=== PATIENT | female | born 1970 | race Caucasian/White ===

== ENCOUNTER 2018-08-08 21:14 | Emergency (ER) | payer BC, OTHER ==
[~2018-08-08] VITALS: Ht 172.7 cm; Wt 127.0 kg
[~2018-08-08 21:14] MED LIST: ACHD5005 PO; ALPR.25T PO; CYCL10TA9 PO; PHEN37.555 PO; PRD20T PO; TRAM50TA2 PO
--- NOTE | 2018-08-08 21:33 | ED Lower Extremity ---
General Stated Complaint: LEG SWELLING Source: patient History of Present Illness Date Seen by Provider: Aug 08, 2018 Time Seen by Provider: 21:19 Initial Comments PT ARRIVES VIA POV FROM HOME--WALKS INTO ER WITHOUT DIFFICULTY PT C/O PAIN TO MEDIAL ASPECT OF LEFT LEG SINCE WEDNESDAY--STARTED IN MEDIAL THIGH AND HAS MOVED DOWN TO MEDIAL CALF AREA IS NOW STARTING TO TURN RED NOTICED SWELLING OF ENTIRE LEFT LEG TODAY NO FEVER NO CHEST PAIN NO SHORTNESS OF BREATH NO PALPITATIONS NO DIZZINESS OR SYNCOPE NO PARESTHESIAS OR MOTOR DEFICITS NO INJURY NO HISTORY OF SIMILAR PT HAS VARICOSE VEINS IN HER LEGS, BUT HAVE NEVER CAUSED HER PROBLEMS NO PROLONGED SITTING OR TRAVEL, ETC. PT HAD LEFT SHOULDER SURGERY 06/16/18 HAS BEEN TAKING TYLENOL AND IBUPROFEN FOR THAT, AND TOOK 3 IBUPROFEN AT 0900 THIS AM, IS HER NORMAL ROUTINE. ALSO STATES SHE TAKES HYDROCODONE FOR HER SHOULDER PAIN WELL, BUT HAS NOT TAKEN ANY TODAY PT WORKS AT [employer] AND NURSES THERE TOLD HER SHE NEEDED TO COME HERE. PCP: [facility] Allergies and Home Medications Allergies Coded Allergies: Penicillins (Verified Allergy, 12/18/12) Soap (Verified Allergy, 12/18/12) povidone-iodine (Verified Allergy, 12/18/12) Home Medications Alprazolam 0.25 Mg Tablet, 1 TAB PO Q8HR PRN, (Reported) Cyclobenzaprine Hcl 10 Mg Tablet, 1 EACH PO Q8HR PRN PRN for SPASMS Prescribed by: JASMINE WATSON on 12/18/12 1538 Cyclobenzaprine Hcl 10 Mg Tablet, 1 EACH PO Q8HR, (Reported) Hydrocodone Bit/Acetaminophen 1 Each Tablet, 1-2 EACH PO Q4H PRN for PAIN Prescribed by: JASMINE WATSON on 12/18/12 1551 Phentermine Hcl 37.5 Mg Capsule, 37.5 MG PO DAILY, (Reported) Rivaroxaban 1 Each Tab.ds.pk, 1 EACH PO UD 15mg by mouth twice daily x 21 days then 20mg by mouth daily Prescribed by: TENNILLE MACHUCA on 08/08/18 2211 Patient Home Medication List Home Medication List Reviewed: Yes Review of Systems Constitutional: no symptoms reported Respiratory: no symptoms reported Cardiovascular: no symptoms reported Gastrointestinal: no symptoms reported Genitourinary: no symptoms reported Musculoskeletal: see HPI Skin: see HPI Psychiatric/Neurological: No Symptoms Reported Past Npomsce-Gjztqo-Kghibg Hx Patient Social History Recent Foreign Travel: No Contact w/Someone Who Travel: No Past Medical History Back Injury Family Medical History No Pertinent Family Hx Physical Exam Vital Signs Vital Signs - First Documented 08/08/18 21:19 Temp 98.4 Pulse 106 Resp 20 B/P (MAP) 184/103 (130) Pulse Ox 96 O2 Delivery Room Air Capillary Refill : Height, Weight, BMI Height: '" Weight: 220lbs. oz. 99.172626is; BMI Method:Stated General Appearance: WD/WN, no apparent distress, obese Cardiovascular: normal peripheral pulses, regular rate, rhythm, no murmur Respiratory: normal breath sounds, no respiratory distress, no accessory muscle use Hips: bilateral hip normal inspection Legs: right leg normal inspection; left leg other (MILD SWELLING TO ENTIRE LEFT LEG, WITH PATCHY ERYTHEMA, WARMTH AND TENDERNESS TO MEDIAL ASPECT OF LEFT LEG FROM MID THIGH TO MID CALF. SMALLER AREA TO LEFT LATERAL CALF AREA. WITH FIRM INDURATION/SUB Q FIRMNESS/MASS/CORDING NOTED ALONG THESE AREAS. MO TOR/SENSORY/VASCULAR INTACT. MULTIPLE SUPERFICAL VARICOSITES WELL SOME LARGER MORE SUB Q VARICOSITIES NOTED. 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, no motor/sensory deficits, alert, normal mood/affect, oriented x 3 Skin: normal color, warm/dry, other ( ABOVE) Progress/Results/Core Measures Results/Orders Lab Results Laboratory Tests Test 08/08/18 21:31 Range/Units White Blood Count 6.8 4.3-11.0 10^3/uL Red Blood Count 4.15 L 4.35-5.85 10^6/uL Hemoglobin 12.1 11.5-16.0 G/DL Hematocrit 36 35-52 % Mean Corpuscular Volume 87 80-99 FL Mean Corpuscular Hemoglobin 29 25-34 PG Mean Corpuscular Hemoglobin Concent 34 32-36 G/DL Red Cell Distribution Width 13.7 10.0-14.5 % Platelet Count 253 130-400 10^3/uL Mean Platelet Volume 9.6 7.4-10.4 FL Neutrophils (%) (Auto) 66 42-75 % Lymphocytes (%) (Auto) 26 12-44 % Monocytes (%) (Auto) 5 0-12 % Eosinophils (%) (Auto) 2 0-10 % Basophils (%) (Auto) 0 0-10 % Neutrophils # (Auto) 4.5 1.8-7.8 X 10^3 Lymphocytes # (Auto) 1.8 1.0-4.0 X 10^3 Monocytes # (Auto) 0.4 0.0-1.0 X 10^3 Eosinophils # (Auto) 0.1 0.0-0.3 10^3/uL Basophils # (Auto) 0.0 0.0-0.1 10^3/uL Erythrocyte Sedimentation Rate 36 H 0-20 MM/HR Prothrombin Time 13.7 12.2-14.7 SEC INR Comment 1.0 0.8-1.4 Activated Partial Thromboplast Time 25 24-35 SEC Sodium Level 139 135-145 MMOL/L Potassium Level 3.7 3.6-5.0 MMOL/L Chloride Level 106 98-107 MMOL/L Carbon Dioxide Level 20 L 21-32 MMOL/L Anion Gap 13 5-14 MMOL/L Blood Urea Nitrogen 17 7-18 MG/DL Creatinine 0.91 0.60-1.30 MG/DL Estimat Glomerular Filtration Rate > 60 BUN/Creatinine Ratio 19 Glucose Level 107 H 70-105 MG/DL Calcium Level 9.2 8.5-10.1 MG/DL Corrected Calcium 9.0 8.5-10.1 MG/DL Magnesium Level 2.1 1.8-2.4 MG/DL Total Bilirubin 0.3 0.1-1.0 MG/DL Aspartate Amino Transf (AST/SGOT) 60 H 5-34 U/L Alanine Aminotransferase (ALT/SGPT) 76 H 0-55 U/L Alkaline Phosphatase 108 40-136 U/L C-Reactive Protein High Sensitivity 1.92 H 0.00-0.50 MG/DL B-Type Natriuretic Peptide < 10.0 <100.0 PG/ML Total Protein 7.6 6.4-8.2 GM/DL Albumin 4.2 3.2-4.5 GM/DL Serum Test, Qualitative NEGATIVE NEGATIVE My Orders Orders - TENNILLE MACHUCA DO Ed Iv/Invasive Line Start (08/08/18 21:21) Us Venous Lower Ext Lt (08/08/18 21:21) BNP (08/08/18 21:21) Cbc With Automated Diff (08/08/18 21:21) Comprehensive Metabolic Panel (08/08/18 21:21) Hs C Reactive Protein (08/08/18 21:21) Erythrocyte Sedimentation Rate (08/08/18 21:21) Magnesium (08/08/18 21:21) Protime With Inr (08/08/18 21:21) Partial Thromboplastin Time (08/08/18 21:21) Hcg,Qualitative Serum (08/08/18 21:24) Methylprednisolone Sod Succ (Solu-Medrol (08/08/18 22:00) Rivaroxaban Tablet (Xarelto Tablet) (08/08/18 22:00) Medications Given in ED Current Medications Medications Dose Ordered Sig/Reddy Route Start Time Stop Time Status Last Admin Dose Admin Methylprednisolone Sodium Succinate 125 mg ONCE ONCE IVP 08/08/18 22:00 08/08/18 22:03 DC 08/08/18 22:16 125 MG Rivaroxaban 15 mg ONCE ONCE PO 08/08/18 22:00 08/08/18 22:03 DC 08/08/18 22:11 15 MG Vital Signs/I&O 08/08/18 21:19 Temp 98.4 Pulse 106 Resp 20 B/P (MAP) 184/103 (130) Pulse Ox 96 O2 Delivery Room Air Diagnostic Imaging Comments ULTRASOUND / DOPPLER LEFT LEG--SUPERFICIAL VENOUS THROMBUS FROM MID THIGH DOWN. NO DEEP VENOUS THROMBUS--PER TECH REPORT AT 0079, AND PER [facility] VIA FAX @ 2629 Departure Impression Primary Impression: Superficial thrombophlebitis of left leg Additional Impression: MILDLY ELEVATED LIVER ENZYMES Disposition: 01 HOME, SELF-CARE Condition: Stable Departure-Patient Inst. Referrals: [facility] (PCP/Family) Primary Care Physician Patient Instructions: Superficial Phlebitis Add. Discharge Instructions: MOIST HEAT TO AREAS AT 20 MINUTE INTERVALS ELEVATE LEG MUCH POSSIBLE CONTINUE TYLENOL AND IBUPROFEN, USE TYLENOL SPARINGLY FOLLOW UP WITH [facility] TOMORROW FOR FURTHER CARE Scripts Rivaroxaban (Xarelto Starter Pack) 1 Each Tab.ds.pk 1 EACH PO UD, #51 PKG 15mg by mouth twice daily x 21 days then 20mg by mouth daily Prov: TENNILLE MACHUCA DO 08/08/18 TENNILLE MACHUCA DO Aug 08, 2018 21:33
[2018-08-08 21:45] LABS: BASOPHILS % (AUTO) 0 % (0-10); EOSINOPHILS # (AUTO) 0.1 10^3/uL (0.0-0.3); EOSINOPHILS % (AUTO) 2 % (0-10); HEMATOCRIT 36 % (35-52); HEMOGLOBIN 12.1 G/DL (11.5-16.0); LYMPHOCYTES # (AUTO) 1.8 X 10^3 (1.0-4.0); LYMPHOCYTES % (AUTO) 26 % (12-44); MEAN CORPUSCULAR HEMOGLOBIN 29 PG (25-34); MEAN CORPUSCULAR HGB CONC 34 G/DL (32-36); MEAN CORPUSCULAR VOLUME 87 FL (80-99); MEAN PLATELET VOLUME 9.6 FL (7.4-10.4); MONOCYTES # (AUTO) 0.4 X 10^3 (0.0-1.0); MONOCYTES % (AUTO) 5 % (0-12); NEUTROPHILS # (AUTO) 4.5 X 10^3 (1.8-7.8); NEUTROPHILS % (AUTO) 66 % (42-75); PLATELET COUNT 253 10^3/uL (130-400); RED CELL DISTRIBUTION WIDTH 13.7 % (10.0-14.5); WHITE BLOOD COUNT 6.8 10^3/uL (4.3-11.0)
[2018-08-08 22:00] LABS: PROTHROMBIN TIME PATIENT 13.7 SEC (12.2-14.7)
[2018-08-08] MEDS ORDERED: RIVAROXABAN 15 MG TABLET (XARELTO) PO ONE (22:00)
[2018-08-08] MEDS ORDERED: methylPREDNISolone 125 MG (Solu-MEDROL) VIAL IVP ONE (22:00)
[2018-08-08 22:07] LABS: ERYTHROCYTE SEDIMENTATION RATE 36 MM/HR (0-20)
[2018-08-08 22:09] LABS: ALANINE AMINOTRANSFERASE 76 U/L (0-55); ALBUMIN 4.2 GM/DL (3.2-4.5); ALKALINE PHOSPHATASE 108 U/L (40-136); BILIRUBIN,TOTAL 0.3 MG/DL (0.1-1.0); BUN/CREATININE RATIO 19; CALCIUM 9.2 MG/DL (8.5-10.1); CARBON DIOXIDE 20 MMOL/L (21-32); CHLORIDE 106 MMOL/L (98-107); CREATININE SERUM 0.91 MG/DL (0.60-1.30); GFR ESTIMATED > 60; GLUCOSE 107 MG/DL (70-105); MAGNESIUM 2.1 MG/DL (1.8-2.4); POTASSIUM 3.7 MMOL/L (3.6-5.0); SODIUM 139 MMOL/L (135-145); TOTAL PROTEIN 7.6 GM/DL (6.4-8.2)
[2018-08-08] MEDS ORDERED: RIVA1TAB PO (22:11)
[2018-08-08 22:36] VITALS: BP 142/79
--- OUTSIDE RECORDS SUMMARY | 2018-08-09 06:09 | XMS REPORT ---
Author Author SASHA PIZANO [facility] Address [address] [place] [address] Care Team Providers Care Research Editor Name Role Phone HARINDER SASHA Unavailable PROBLEMS Type Condition ICD9-CM Code XBR22-QG Code Onset Dates Condition Status SNOMED Code Problem Impingement syndrome of left shoulder M75.42 Active 400433449468559 Problem Genital warts A63.0 Active 667091684 Problem Morbid (severe) obesity due to excess calories E66.01 Active 79620356485041 Problem Dysthymia F34.1 Active 22075410 Problem Anxiety F41.9 Active 13168327 Problem Stressful life event affecting family Z63.79 Active 304354724 Problem Mild single current episode of major depressive disorder F32.0 Active 56903076 Problem Body mass index (BMI) of 40.0-44.9 in adult Z68.41 Active 188067937 ALLERGIES No Information ENCOUNTERS Encounter Location Date Diagnosis [id number] [place] [id number] Apr, [address] [place] [address] [id number] Apr, Dysthymia F34.1 [facility] [address] [id number] [id number] Apr, [facility] [address] [id number] [id number] Apr, [facility] [address] [id number] [phone] Mar, Left shoulder pain, unspecified chronicity M25.512 [place] [id number] [place] [address] [id number] Mar, Left shoulder pain, unspecified chronicity M25.512 and BMI 40.0-44.9, adult Z68.41 [facility] [id number] [id number] Feb, Dysthymia F34.1 ; Anxiety F41.9 ; High risk medication use Z79.899 and BMI 40.0- 44.9, adult Z68.41 [facility] [id number] [place] [address] [id number] Feb, Dysthymia F34.1 [facility] [place] [id number] [place] [address] [id number] Jan, BMI 40.0-44.9, adult Z68.41 and Dysthymia F34.1 [facility] [id number] [place] [phone] Jan, [facility] [place] [id number] [place] [address] [id number] Dec, [facility] [place] [id number] [place] [address] [id number] Nov, Fungal rash of torso B36.9 and BMI 40.0-44.9, adult Z68.41 [facility] [id number] [place] [address] [id number] Sep, Gastroenteritis K52.9 [facility] [place] [id number] [place] [address] [id number] Aug, Anxiety F41.9 ; Morbid (severe) obesity due to excess calories E66.01 and Body mass index (BMI) of 40.0-44.9 in adult Z68.41 [facility] [address] [place] [address] [id number] Jul, Morbid (severe) obesity due to excess calories E66.01 ; Body mass index (BMI) of 40.0-44.9 in adult Z68.41 ; Anxiety F41.9 and BMI 40.0-44.9, adult Z68.41 [facility] [place] [address] [place] [address] [id number] June, [facility] [id number] [place] [address] [id number] Apr, Influenza-like illness R69 ; BMI 40.0-44.9, adult Z68.41 and Follow-up exam Z09 [facility] [id number] [place] [address] [id number] Mar, Influenza-like illness R69 and BMI 40.0-44.9, adult Z68.41 [facility] [id number] [place] [address] [id number] Dec, [facility] [address] [id number] Nov, Dysuria R30.0 [facility] [id number] [place] [address] [id number] Sep, Mild single current episode of major depressive disorder F32.0 and Anxiety F41.9 [facility] [place] [address] [id number] Sep, Anxiety F41.9 [facility] [place] [id number] [place] [address] [id number] Aug, Mild single current episode of major depressive disorder F32.0 and Anxiety F41.9 [facility] [place] [id number] [place] [address] [id number] Aug, Anxiety F41.9 [facility] [address] [id number] Jul, Anxiety F41.9 and Stressful life event affecting family Z63.79 [facility] [place] [id number] [place] [address] [id number] June, Anxiety F41.9 and Stressful life event affecting family Z63.79 [facility] [place] [id number] [place] [address] [id number] May, Increased glucose level R73.09 [facility] [place] [id number] [place] [address] [id number] May, Anxiety F41.9 ; Stressful life event affecting family Z63.79 ; Screening for thyroid disorder Z13.29 and Screening for lipid disorders Z13.220 [facility] [place] [id number] [place] [address] [id number] Apr, Encounter for removal of skin lesion L98.9 and Genital warts A63.0 [facility] [id number][place] [phone] Apr, 2017 High risk sexual behavior Z72.51 ; Genital warts A63.0 ; Screening for STD sexually transmitted disease Z11.3 ; Other specified bacterial agents as the cause of diseases classified elsewhere B96.89 and Acute vaginitis N76.0 [facility] [address] [address] May, [facility] [address], [place] [address] May, [facility] [id number] [place] [phone] Feb, [facility] [id number][place] [id number] Feb, [facility] [id number] [place] [phone] Feb, [facility] [id number] [phone] Dec, [facility] [address] [place] [address] [id number] Dec, [facility] [address], [place] [address] Dec, [facility] [address], [place] [address] Dec, [facility] [id number][place] [id number] Dec, [facility] [address], [place] [address] Dec, [facility] [address], [place] [address] 18 Dec, 2012 [facility] [id number][place] [id number] 15 Dec, 2012 [facility] [address], [place] [address] Dec, [facility] [address] [facility] [id number] [place] [id number] Dec, [facility] [address], [place] [address] Dec, [facility] [address] [facility] [id number], [place] [address] Dec, [facility] [id number], [place] [address] Dec, [facility] [address] [facility] [id number], [place] [address] Dec, [facility] [address] [facility] [id number] [phone] Dec, IMMUNIZATIONS No Known Immunizations SOCIAL HISTORY Never Assessed REASON FOR VISIT Update Demographics - Personal Info PLAN OF CARE VITAL SIGNS MEDICATIONS Unknown Medications RESULTS No Results PROCEDURES No Known procedures INSTRUCTIONS MEDICATIONS ADMINISTERED No Known Medications MEDICAL (GENERAL) HISTORY Type Description Date Medical History depression Medical History obesity Surgical History tonsillectomy and adenoidectomy Surgical History cholecystectomy Surgical History appendectomy Surgical History tubal ligation
--- OUTSIDE RECORDS SUMMARY | 2018-08-09 06:09 | XMS REPORT | Clinical Summary ---
Author Author Admin, E Organization [facility] Address Unknown Phone Unavailable Allergies, Adverse Reactions, Alerts Allergy Name Reaction Description Start Date Severity Status Provider BETADINE Critical Active Sharri MUNOZ PENICILLIN Moderate Active Yoselin Virgen RN PENICILLIN preload Critical Active Natalia Lopez RN Conditions or Problems Problem Name Problem Code Onset Date Status Entry Date Provider Comment Standard Description Annotate ANXIETY DISORDER 300.00 Active Yoselin Virgen RN Anxiety state, unspecified DEPRESSION 311 Active Yoselin Virgen RN Depressive disorder, not elsewhere classified HYPERLIPIDEMIA 272.4 Active Yoselin Virgen RN Other and unspecified hyperlipidemia OBESITY 278.00 Resolved Sharri Villagran PA Obesity, unspecified DIETARY SURVEILLANCE AND COUNSELING V65.3 Active Sharri Pool PA Dietary surveillance and counseling EXCERCISE COUNSELING V65.41 Active Sharri Villagran PA Exercise counseling SKIN ULCER, CHRONIC 707.9 Active Sharri Villagran PA Chronic ulcer of unspecified site OBESITY ICD-278.00 Inactive Sharri Villagran PA Medication List Medication Instructions Start Date Stop Date Generic Name NDC Status Provider Patient Instruction PROMETHAZINE HCL 25 MG TABS 1 tab po q 6 hours, prn PROMETHAZINE HCL 79931747987 No Longer Active Jessica Frazell SLEEVE BASTER Active ALPRAZOLAM 0.5 MG TABS take 1/2-1 po tid prn anxiety ALPRAZOLAM 58187440751 Active Sharri Villagran PA Active PHENTERMINE HCL 37.5 MG TABS take one tab po daily PHENTERMINE HCL 86851634935 Active Sharri Villagran PA Active ALPRAZOLAM 0.5 MG TABS 1/2 to 1 tid ALPRAZOLAM 96075092960 No Longer Active Sharri Pool PA Active PHENTERMINE HCL 37.5 MG CAPS Take 1 tablet by mouth daily PHENTERMINE HCL 85418147789 No Longer Active Sharri Pool PA Active PROZAC 40 MG CAPS Take 1 tablet by mouth daily FLUOXETINE HCL 65678187394 No Longer Active Sharri Pool PA Active LASIX 20 MG TAB 1 tablet by mouth daily FUROSEMIDE 70606364522 No Longer Active Natalia John RN Active POTASSIUM CHLORIDE CR 10 MEQ CPCR 1 capsule by mouth daily POTASSIUM CHLORIDE 51554954934 No Longer Active Yoselin Lock RN Active FLEXERIL 10 MG TAB 1 tablet by mouth 3 times daily as needed CYCLOBENZAPRINE HCL 62841212412 No Longer Active Yoselin Lock RN Active WELLBUTRIN 75 MG TABS by mouth twice a day BUPROPION HCL 79978253315 No Longer Active Yoselin Lock RN Active PHENTERMINE HCL 37.5 MG CAPS 1 tab by mouth daily 30 minutes before breakfast PHENTERMINE HCL 47292992263 No Longer Active Yoselin Lock RN Active ALPRAZOLAM 0.5 MG TABS 1/2 to 1 by mouth three times a day ALPRAZOLAM 64920336575 No Longer Active Steven MUNOZ Active PHENTERMINE HCL 37.5 MG CAPS 1 tab by mouth daily 30 minutes before breakfast PHENTERMINE HCL 37.5 MG CAPS 600244 PHENTERMINE HCL Inactive WELLBUTRIN 75 MG TABS by mouth twice a day WELLBUTRIN 75 MG TABS BUPROPION HCL Inactive FLEXERIL 10 MG TAB 1 tablet by mouth 3 times daily as needed FLEXERIL 10 MG TAB CYCLOBENZAPRINE HCL Inactive POTASSIUM CHLORIDE CR 10 MEQ CPCR 1 capsule by mouth daily POTASSIUM CHLORIDE CR 10 MEQ CPCR POTASSIUM CHLORIDE Inactive LASIX 20 MG TAB 1 tablet by mouth daily LASIX 20 MG TAB 619594 FUROSEMIDE Inactive PROZAC 40 MG CAPS Take 1 tablet by mouth daily PROZAC 40 MG CAPS 340747 FLUOXETINE HCL Inactive PHENTERMINE HCL 37.5 MG CAPS Take 1 tablet by mouth daily PHENTERMINE HCL 37.5 MG CAPS 509081 PHENTERMINE HCL Inactive ALPRAZOLAM 0.5 MG TABS 1/2 to 1 tid ALPRAZOLAM 0.5 MG TABS 113324 ALPRAZOLAM Inactive PROMETHAZINE HCL 25 MG TABS 1 tab po q 6 hours, prn PROMETHAZINE HCL 25 MG TABS 655090 PROMETHAZINE HCL Inactive ALPRAZOLAM 0.5 MG TABS 1/2 to 1 by mouth three times a day ALPRAZOLAM 0.5 MG TABS 044472 ALPRAZOLAM Inactive Encounters Code Encounter Date Provider Facility CPT-72232 Level 3 Est. Patient 14:21:44 CDT Sharri Villagran [facility] CPT-72943 Level 3 Est. Patient 16:06:43 CDT Sharri Villagran [facility] CPT-90605 Level 3 Est. Patient 15:30:14 CDT Sharri Villagran [facility] CPT-99471 Level 3 Est. Patient 10:45:43 JOCKEY AGENT Steven Vuong [facility] CPT-41398 Level 3 Est. Patient 10:43:35 CDT Steven Vuong [facility] CPT-56533 Level 3 Est. Patient 13:36:15 CDT Steven Vuong [facility] CPT-86189 Level 3 Est. Patient 14:14:01 JOCKEY AGENT Steven Vuong [facility] CPT-37381 Level 3 Est. Patient 16:00:48 JOCKEY AGENT Steven Vuong [facility]
--- OUTSIDE RECORDS SUMMARY | 2018-08-09 06:09 | XMS REPORT ---
Author Author Migration, Doctor Organization [facility] [address] [address] [facility] Address Unknown Phone Unavailable Care Team Providers Care Customer Service Sales Associate Name Role Phone Migration, Doctor Unavailable Unavailable PROBLEMS Type Condition ICD9-CM Code OYU69-ID Code Onset Dates Condition Status SNOMED Code Problem Impingement syndrome of left shoulder M75.42 Active 007782774518946 Problem Genital warts A63.0 Active 413350555 Problem Morbid (severe) obesity due to excess calories E66.01 Active 39111928621477 Problem Dysthymia F34.1 Active 29266301 Problem Anxiety F41.9 Active 36166351 Problem Stressful life event affecting family Z63.79 Active 046149705 Problem Mild single current episode of major depressive disorder F32.0 Active 20901381 Problem Body mass index (BMI) of 40.0-44.9 in adult Z68.41 Active 103946020 ALLERGIES No Information ENCOUNTERS Encounter Location Date Diagnosis [id number] [place] [address] [id number] Apr, [place] [id number] [place] [address] [id number] Apr, Dysthymia F34.1 [facility] [address] [id number] [id number] Apr, [facility] [address] [id number][place] [id number] Apr, [facility] [address] [id number][place] [id number] Mar, Left shoulder pain, unspecified chronicity M25.512 [address] [id number] [place] [address] [id number] Mar, Left shoulder pain, unspecified chronicity M25.512 and BMI 40.0-44.9, adult Z68.41 [address] [place] [address] [place] [address] [id number] Feb, Dysthymia F34.1 ; Anxiety F41.9 ; High risk medication use Z79.899 and BMI 40.0- 44.9, adult Z68.41 [facility] [place] [id number] [place] [address] [id number] Feb, Dysthymia F34.1 [facility] [place] [id number] [place] [address] [id number] Jan, BMI 40.0-44.9, adult Z68.41 and Dysthymia F34.1 [facility] [address] [address] Jan, [facility] [id number] [place] [address] [id number] Dec, [facility] [place] [id number] [place] [address] [id number] Nov, Fungal rash of torso B36.9 and BMI 40.0-44.9, adult Z68.41 [facility] [place] [id number] [place] [address] [id number] Sep, Gastroenteritis K52.9 [facility] [place] [id number] [place] [address] [id number] Aug, Anxiety F41.9 ; Morbid (severe) obesity due to excess calories E66.01 and Body mass index (BMI) of 40.0-44.9 in adult Z68.41 [facility] [address] [place] [address] [id number] Jul, Morbid (severe) obesity due to excess calories E66.01 ; Body mass index (BMI) of 40.0-44.9 in adult Z68.41 ; Anxiety F41.9 and BMI 40.0-44.9, adult Z68.41 [facility] [address] [place] [address] [id number] June, [facility] [place] [id number] [place] [address] [id number] Apr, Influenza-like illness R69 ; BMI 40.0-44.9, adult Z68.41 and Follow-up exam Z09 [id number] [place] [address] [id number] Mar, Influenza-like illness R69 and BMI 40.0-44.9, adult Z68.41 [place] [id number] [place] [address] [id number] Dec, [facility] [place] [address] [id number] Nov, Dysuria R30.0 [place] [id number] [place] [address] [id number] Sep, Mild single current episode of major depressive disorder F32.0 and Anxiety F41.[address] [id number] Sep, Anxiety F41.9 [place] [address] [place] [address] [id number] Aug, Mild single current episode of major depressive disorder F32.0 and Anxiety F41.9 [place] [address] [place] [address] [id number] Aug, Anxiety F41.9 [place] [address] [place] [address] [id number] Jul, Anxiety F41.9 and Stressful life event affecting family Z63.79 [place] [address] [place] [address] [id number] June, Anxiety F41.9 and Stressful life event affecting family Z63.79 [place] [address] [place] [address] [id number] May, Increased glucose level R73.09 [place] [address] [place] [address] [id number] 14 May, 2016 Anxiety F41.9 ; Stressful life event affecting family Z63.79 ; Screening for thyroid disorder Z13.29 and Screening for lipid disorders Z13.220 [address] [address] [place] [address] [id number] 31 Apr, 2016 Encounter for removal of skin lesion L98.9 and Genital warts A63.0 [place] [address] [place] [address] [id number] Apr, High risk sexual behavior Z72.51 ; Genital warts A63.0 ; Screening for STD sexually transmitted disease Z11.3 ; Other specified bacterial agents as the cause of diseases classified elsewhere B96.89 and Acute vaginitis N76.0 [facility] [address] [address] 14 May, 2014 [facility] [address] [id number] [place] [address] May, [facility] [address]00565100[place], [place] [address] Feb, [facility] [address] [place] [address] [id number] Feb, [facility] [address], [place] [address] Feb, [facility] [id number] [place] [address] [id number] Dec, [facility] [id number] [place] [address] [id number] Dec, [facility] [address], [place] [address] Dec, [facility] [address], [place] [address] Dec, [facility] [address]00565100[place] [id number] Dec, [facility] [address], [place] [address] Dec, [facility] [address], [place] [address] 18 Dec, 2012 [facility] [address]00565100[place], [place] [phone] Dec, [facility] [address], [place] [address] Dec, [facility] [address] [place] [address] [id number] Dec, [facility] [address] [facility] [id number], [place] [address] Dec, [facility] [address] [facility] [id number] [address] Dec, [facility] [address] [facility] [id number] [address] Dec, [facility] [address] [facility] [id number] [address] Dec, [facility] [address] [facility] [id number] [place] [phone] Dec, IMMUNIZATIONS No Known Immunizations SOCIAL HISTORY Never Assessed REASON FOR VISIT EMR-[facility] PLAN OF CARE VITAL SIGNS MEDICATIONS Unknown Medications RESULTS No Results PROCEDURES No Known procedures INSTRUCTIONS MEDICATIONS ADMINISTERED No Known Medications MEDICAL (GENERAL) HISTORY Type Description Date Medical History depression Medical History obesity Surgical History tonsillectomy and adenoidectomy Surgical History cholecystectomy Surgical History appendectomy Surgical History tubal ligation
--- OUTSIDE RECORDS SUMMARY | 2018-08-09 06:09 | XMS REPORT ---
Author Author SASHA PIZANO [facility] Address [address] [place] [address] Care Team Providers Care Hotshot Superintendent Name Role Phone HARINDER SASHA Unavailable PROBLEMS Type Condition ICD9-CM Code IDO00-TD Code Onset Dates Condition Status SNOMED Code Problem Impingement syndrome of left shoulder M75.42 Active 534797903498415 Problem Genital warts A63.0 Active 361130423 Problem Morbid (severe) obesity due to excess calories E66.01 Active 31783157904435 Problem Dysthymia F34.1 Active 20887520 Problem Anxiety F41.9 Active 59044689 Problem Stressful life event affecting family Z63.79 Active 522985801 Problem Mild single current episode of major depressive disorder F32.0 Active 15416053 Problem Body mass index (BMI) of 40.0-44.9 in adult Z68.41 Active 634086153 ALLERGIES No Information ENCOUNTERS Encounter Location Date Diagnosis [address] [place] [address] [id number] Apr, [address] [place] [address] [phone] Apr, Dysthymia F34.1 [facility] [address] [id number] [place] [id number] Apr, [facility] [address] [id number] [place] [id number] Apr, [facility] [address] [id number] [place] [id number] Mar, Left shoulder pain, unspecified chronicity M25.512 [place] [id number] [place] [address] [id number] Mar, Left shoulder pain, unspecified chronicity M25.512 and BMI 40.0-44.9, adult Z68.41 [facility] [id number] [place] [id number] Feb, Dysthymia F34.1 ; Anxiety F41.9 ; High risk medication use Z79.899 and BMI 40.0- 44.9, adult Z68.41 [facility] [place] [id number] [place] [address] [id number] Feb, Dysthymia F34.1 [facility] [place] [id number] [place] [address] [id number] Jan, BMI 40.0-44.9, adult Z68.41 and Dysthymia F34.1 [facility] [id number] [place] [address] Jan, [facility] [place] [id number] [place] [address] [id number] Dec, [facility] [place] [id number] [place] [address] [id number] Nov, Fungal rash of torso B36.9 and BMI 40.0-44.9, adult Z68.41 [facility] [place] [id number] [place] [address] [id number] Sep, Gastroenteritis K52.9 [facility] [place] [id number] [place] [address] [id number] Aug, Anxiety F41.9 ; Morbid (severe) obesity due to excess calories E66.01 and Body mass index (BMI) of 40.0-44.9 in adult Z68.41 [facility] [place] [address] [place] [address] [id number] Jul, Morbid (severe) obesity due to excess calories E66.01 ; Body mass index (BMI) of 40.0-44.9 in adult Z68.41 ; Anxiety F41.9 and BMI 40.0-44.9, adult Z68.41 [facility] [place] [address] [place] [address] [id number] June, [facility] [place] [id number] [place] [address] [id number] Apr, Influenza-like illness R69 ; BMI 40.0-44.9, adult Z68.41 and Follow-up exam Z09 [facility] [place] [id number] [place] [address] [id number] Mar, Influenza-like illness R69 and BMI 40.0-44.9, adult Z68.41 [facility] [place] [id number] [place] [address] [id number] Dec, [facility] [place] [address] [id number] Nov, Dysuria R30.0 [facility] [place] [id number] [place] [address] [id number] Sep, Mild single current episode of major depressive disorder F32.0 and Anxiety F41.9 [facility] [place] [address] [id number] Sep, Anxiety F41.9 [facility] [place] [id number] [place] [address] [id number] Aug, Mild single current episode of major depressive disorder F32.0 and Anxiety F41.9 [facility] [place] [id number] [place] [address] [id number] Aug, Anxiety F41.9 [facility] [address] [id number] Jul, Anxiety F41.9 and Stressful life event affecting family Z63.79 [facility] [place] [id number] [place] [address] [id number] June, Anxiety F41.9 and Stressful life event affecting family Z63.79 [facility] [place] [address] [place] [address] [id number] May, Increased glucose level R73.09 [facility] [place] [address] [place] [address] [id number] May, Anxiety F41.9 ; Stressful life event affecting family Z63.79 ; Screening for thyroid disorder Z13.29 and Screening for lipid disorders Z13.220 [facility] [place] [address] [place] [address] [id number] Apr, Encounter for removal of skin lesion L98.9 and Genital warts A63.0 [facility] [id number] [place] [id number] Apr, 2017 High risk sexual behavior Z72.51 ; Genital warts A63.0 ; Screening for STD sexually transmitted disease Z11.3 ; Other specified bacterial agents as the cause of diseases classified elsewhere B96.89 and Acute vaginitis N76.0 [facility] [address]005[address]100[place], [place] [address] May, [facility] [address]005[address], [place] [address] May, [facility] [id number] [place] [address] Feb, [facility] [id number] [place] [id number] Feb, [facility] [id number] [place] [address] Feb, [facility] [id number] [place], [place] [id number] Dec, [facility] [address] [place] [address] [id number] Dec, [facility] [address]005[address]100[place], [place] [address] Dec, [facility] [address]005[address]100[place], [place] [address] Dec, [facility] [id number] [place] [id number] Dec, [facility] [address]005[address]100[place], [place] [address] Dec, [facility] [address]005[address]100[place], [place] [address] 18 Dec, 2012 [facility] [id number] [place] [id number] 15 Dec, 2012 [facility] [address], [place] [address] Dec, [facility] [address] [facility] [id number] [place] [phone] Dec, [facility] [address], [place] [address] Dec, [facility] [address] [facility] [id number] [address] Dec, [facility] [address] [place] [id number], [place] [address] Dec, [facility] [address] [facility] [id number], [place] [address] Dec, [facility] 120 [facility] [id number] [place] [id number] Dec, IMMUNIZATIONS No Known Immunizations SOCIAL HISTORY Never Assessed REASON FOR VISIT Update Demographics - Additional Info PLAN OF CARE VITAL SIGNS MEDICATIONS Unknown Medications RESULTS No Results PROCEDURES No Known procedures INSTRUCTIONS MEDICATIONS ADMINISTERED No Known Medications MEDICAL (GENERAL) HISTORY Type Description Date Medical History depression Medical History obesity Surgical History tonsillectomy and adenoidectomy Surgical History cholecystectomy Surgical History appendectomy Surgical History tubal ligation
--- OUTSIDE RECORDS SUMMARY | 2018-08-09 06:09 | XMS REPORT ---
Author Author Migration, Doctor Organization [facility] Address Unknown Phone Unavailable Care Team Providers Care Adjunct Instructor Of Women'S Studies Name Role Phone Migration, Doctor Unavailable Unavailable PROBLEMS Type Condition ICD9-CM Code OLN96-TQ Code Onset Dates Condition Status SNOMED Code Problem Impingement syndrome of left shoulder M75.42 Active 428074664456041 Problem Genital warts A63.0 Active 299090273 Problem Morbid (severe) obesity due to excess calories E66.01 Active 44319968661836 Problem Dysthymia F34.1 Active 49724096 Problem Anxiety F41.9 Active 65820146 Problem Stressful life event affecting family Z63.79 Active 372990181 Problem Mild single current episode of major depressive disorder F32.0 Active 58840559 Problem Body mass index (BMI) of 40.0-44.9 in adult Z68.41 Active 706989717 ALLERGIES No Information ENCOUNTERS Encounter Location Date Diagnosis [address] [place] [address] [id number] Apr, [place] [id number] [place] [address] [id number] Apr, Dysthymia F34.[address] [facility] [address] [id number], [place] [id number] Apr, [facility] [address] [id number], [place] [id number] Apr, [facility] [address] [id number], [place] [id number] Mar, Left shoulder pain, unspecified chronicity M25.512 [place] [address] [place] [address] [id number] Mar, Left shoulder pain, unspecified chronicity M25.512 and BMI 40.0-44.9, adult Z68.41 [place] [address] [place] [address] [id number] Feb, Dysthymia F34.1 ; Anxiety F41.9 ; High risk medication use Z79.899 and BMI 40.0- 44.9, adult Z68.41 [facility] [place] [id number] [place] [address] [id number] Feb, Dysthymia F34.1 [facility] [place] [id number] [place] [address] [id number] Jan, BMI 40.0-44.9, adult Z68.41 and Dysthymia F34.1 [facility] [address]005[address]100[place] [address] Jan, [facility] [id number] [place] [address] [id number] Dec, [facility] [id number] [place] [address] [id number] Nov, Fungal rash of torso B36.9 and BMI 40.0-44.9, adult Z68.41 [facility] [place] [id number] [place] [address] [id number] Sep, Gastroenteritis K52.9 [facility] [place] [id number] [place] [address] [id number] Aug, Anxiety F41.9 ; Morbid (severe) obesity due to excess calories E66.01 and Body mass index (BMI) of 40.0-44.9 in adult Z68.41 [facility] [address] [place] [address] [id number] Jul, Morbid (severe) obesity due to excess calories E66.01 ; Body mass index (BMI) of 40.0-44.9 in adult Z68.41 ; Anxiety F41.9 and BMI 40.0-44.9, adult Z68.41 [facility] [address] [place] [address] [id number] June, [facility] [place] [id number] [place] [address] [id number] Apr, Influenza-like illness R69 ; BMI 40.0-44.9, adult Z68.41 and Follow-up exam Z09 [id number] [place] [address] [id number] Mar, Influenza-like illness R69 and BMI 40.0-44.9, adult Z68.41 [place] [id number] [place] [address] [id number] Dec, [facility] [place] [address] [id number] Nov, Dysuria R30.0 [place] [id number] [place] [address] [id number] Sep, Mild single current episode of major depressive disorder F32.0 and Anxiety F41.[address] [id number] Sep, Anxiety F41.9 [place] [address] [place] [address] [id number] Aug, Mild single current episode of major depressive disorder F32.0 and Anxiety F41.9 [place] [address] [place] [address] [id number] Aug, Anxiety F41.9 [place] [address] [place] [address] [id number] Jul, Anxiety F41.9 and Stressful life event affecting family Z63.79 [place] [address] [place] [address] [id number] June, Anxiety F41.9 and Stressful life event affecting family Z63.79 [place] [address] [place] [address] [id number] May, Increased glucose level R73.09 [place] [address] [place] [address] [id number] 14 May, 2016 Anxiety F41.9 ; Stressful life event affecting family Z63.79 ; Screening for thyroid disorder Z13.29 and Screening for lipid disorders Z13.220 [place] [address] [place] [address] [id number] 31 Apr, 2016 Encounter for removal of skin lesion L98.9 and Genital warts A63.0 [place] [address] [place] [address] [id number] Apr, High risk sexual behavior Z72.51 ; Genital warts A63.0 ; Screening for STD sexually transmitted disease Z11.3 ; Other specified bacterial agents as the cause of diseases classified elsewhere B96.89 and Acute vaginitis N76.0 [facility] [address]005[address]100[place] [address] 14 May, 2014 [facility] [id number] [place] [address] May, [facility] [address]005[address]100[place] [address] Feb, [facility] [address] [place] [address] [id number] Feb, [facility] [address]005[address]100[place] [address] Feb, [facility] [id number] [place] [address] [id number] Dec, [facility] [id number] [place] [address] [id number] Dec, [facility] [address] [address] Dec, [facility] [address]100[place] [address] Dec, [facility] [address]005[address]100[place] [id number] Dec, [facility] [address] [address] Dec, [facility] [address] [address] 18 Dec, 2012 [facility] [id number] [id number] Dec, [facility] [id number] [address] Dec, [facility] [id number] [place] [id number] Dec, [facility] [address] [facility] [id number] [address] Dec, [facility] [address] [facility] [id number] [address] Dec, [facility] [address] [facility] [id number] [address] Dec, [facility] [address] [facility] [id number] [address] Dec, [facility] [address] [facility] [id number] [place] [id number] Dec, IMMUNIZATIONS No Known Immunizations SOCIAL HISTORY Never Assessed [place]ASON FOR [place]IT [place] [place] VITAL SIGNS MEDICATIONS Unknown Medications RESULTS No Results PROCEDURES No Known procedures INSTRUCTIONS MEDICATIONS ADMINISTERED No Known Medications MEDICAL (GENERAL) HISTORY Type Description Date Medical History depression Medical History obesity Surgical History tonsillectomy and adenoidectomy Surgical History cholecystectomy Surgical History appendectomy Surgical History tubal ligation
--- OUTSIDE RECORDS SUMMARY | 2018-08-09 06:09 | XMS REPORT ---
Author Author KAIA CLANCY [facility] Address [address] [place] [address] Care Team Providers Care Sand Caster Apprentice Name Role Phone KAIA CLANCY Unavailable PROBLEMS Type Condition ICD9-CM Code NID71-GN Code Onset Dates Condition Status SNOMED Code Problem Impingement syndrome of left shoulder M75.42 Active 431980929759713 Problem Genital warts A63.0 Active 390059756 Problem Morbid (severe) obesity due to excess calories E66.01 Active 84675475827183 Problem Dysthymia F34.1 Active 44611050 Problem Anxiety F41.9 Active 82793435 Problem Stressful life event affecting family Z63.79 Active 605410400 Problem Mild single current episode of major depressive disorder F32.0 Active 80966491 Problem Body mass index (BMI) of 40.0-44.9 in adult Z68.41 Active 544525477 ALLERGIES No Information ENCOUNTERS Encounter Location Date Diagnosis [id number] [place] [address] [id number] Apr, [address] [place] [address] [id number] Apr, Dysthymia F34.1 [facility] [address] [id number] [phone] Apr, [facility] [address] [id number][place] [id number] Apr, [facility] [address] [id number][place] [id number] Mar, Left shoulder pain, unspecified chronicity M25.512 [address] [place] [address] [id number] Mar, Left shoulder pain, unspecified chronicity M25.512 and BMI 40.0-44.9, adult Z68.41 [facility] [id number][place] [id number] Feb, Dysthymia F34.1 ; Anxiety F41.9 ; High risk medication use Z79.899 and BMI 40.0- 44.9, adult Z68.41 [facility] [id number] [place] [address] [id number] Feb, Dysthymia F34.1 [facility] [id number] [place] [address] [id number] Jan, BMI 40.0-44.9, adult Z68.41 and Dysthymia F34.1 [facility] [id number] [place] [address] Jan, [facility] [id number] [place] [address] [id number] Dec, [facility] [place] [id number] [place] [address] [id number] Nov, Fungal rash of torso B36.9 and BMI 40.0-44.9, adult Z68.41 [facility] [id number] [place] [address] [id number] Sep, Gastroenteritis K52.9 [facility] [address] [place] [address] [id number] Aug, Anxiety F41.9 ; Morbid (severe) obesity due to excess calories E66.01 and Body mass index (BMI) of 40.0-44.9 in adult Z68.41 [facility] [address] [place] [address] [id number] Jul, Morbid (severe) obesity due to excess calories E66.01 ; Body mass index (BMI) of 40.0-44.9 in adult Z68.41 ; Anxiety F41.9 and BMI 40.0-44.9, adult Z68.41 [facility] [address] [place] [address] [id number] June, [facility] [id number] [place] [address] [id number] Apr, Influenza-like illness R69 ; BMI 40.0-44.9, adult Z68.41 and Follow-up exam Z09 [facility] [id number] [place] [address] [id number] Mar, Influenza-like illness R69 and BMI 40.0-44.9, adult Z68.41 [facility] [id number] [place] [address] [id number] Dec, [facility] [address] [id number] Nov, Dysuria R30.0 [facility] [id number] [place] [address] [id number] Sep, Mild single current episode of major depressive disorder F32.0 and Anxiety F41.9 [facility] [place] [address] [address] [id number] Sep, Anxiety F41.9 [facility] [id number] [place] [address] [id number] Aug, Mild single current episode of major depressive disorder F32.0 and Anxiety F41.9 [facility] [place] [id number] [place] [address] [id number] Aug, Anxiety F41.9 [facility] [address] [id number] Jul, Anxiety F41.9 and Stressful life event affecting family Z63.79 [facility] [id number] [place] [address] [id number] June, Anxiety F41.9 and Stressful life event affecting family Z63.79 [facility] [id number] [place] [address] [id number] May, Increased glucose level R73.09 [facility] [address] [place] [address] [id number] May, Anxiety F41.9 ; Stressful life event affecting family Z63.79 ; Screening for thyroid disorder Z13.29 and Screening for lipid disorders Z13.220 [facility] [address] [place] [address] [id number] Apr, Encounter for removal of skin lesion L98.9 and Genital warts A63.0 [facility] [id number], [place] [phone] Apr, 2017 High risk sexual behavior Z72.51 ; Genital warts A63.0 ; Screening for STD sexually transmitted disease Z11.3 ; Other specified bacterial agents as the cause of diseases classified elsewhere B96.89 and Acute vaginitis N76.0 [facility] [address] [address] May, [facility] [address] [address] May, [facility] [id number] [place] [phone] Feb, [facility] [id number], [place] [phone] Feb, [facility] [id number] [place] [address] Feb, [facility] [id number], [place] [phone] Dec, [facility] [address] [place] [address] [id number] Dec, [facility] [address] [address] Dec, [facility] [address] [address] Dec, [facility] [id number], [place] [phone] Dec, [facility] [address] [address] Dec, [facility] [address] [address] 18 Dec, 2012 [facility] [id number], [place] [id number] 15 Dec, 2012 [facility] [address] [address] Dec, [facility] [address] [facility] [id number] [place] [phone] Dec, [facility] [address] [id number] [address] Dec, [facility] [address] [facility] [id number] [place] [address] Dec, [facility] [address] [id number] [address] Dec, [facility] [address] [facility] [id number] [place] [address] Dec, [facility] [address] [facility] [id number], [place] [phone] Dec, IMMUNIZATIONS No Known Immunizations SOCIAL HISTORY Never Assessed REASON FOR VISIT Controlled Med Refill PLAN OF CARE VITAL SIGNS MEDICATIONS Medication Instructions Dosage Frequency Start Date End Date Duration Status Clonazepam 0.5 MG Orally 2 times a day PRN 1 tablet prn anxiety Jan, Active RESULTS No Results PROCEDURES No Known procedures INSTRUCTIONS MEDICATIONS ADMINISTERED No Known Medications MEDICAL (GENERAL) HISTORY Type Description Date Medical History depression Medical History obesity Surgical History tonsillectomy and adenoidectomy Surgical History cholecystectomy Surgical History appendectomy Surgical History tubal ligation
--- OUTSIDE RECORDS SUMMARY | 2018-08-09 06:10 | XMS REPORT ---
Author Author SASHA PIZANO [facility] Address [address] [place] [address] Care Team Providers Care Supervisor Central Supply Name Role Phone HARINDER SASHA Unavailable PROBLEMS Type Condition ICD9-CM Code DEG74-JE Code Onset Dates Condition Status SNOMED Code Problem Morbid (severe) obesity due to excess calories E66.01 Active 79047875511833 Problem Body mass index (BMI) of 40.0-44.9 in adult Z68.41 Active 573460148 Problem Anxiety F41.9 Active 13799402 Problem Genital warts A63.0 Active 146952087 Problem Mild single current episode of major depressive disorder F32.0 Active 71330638 Problem Stressful life event affecting family Z63.79 Active 045647765 ALLERGIES No Information ENCOUNTERS Encounter Location Date Diagnosis [address] [place] [address] [id number] Dec, [address] [id number] Dec, [id number] [place] [address] [id number] Nov, Fungal rash of torso B36.9 and BMI 40.0-44.9, adult Z68.41 [id number] [place] [address] [id number] Sep, Gastroenteritis K52.9 [id number] [place] [address] [id number] Aug, Anxiety F41.9 ; Morbid (severe) obesity due to excess calories E66.01 and Body mass index (BMI) of 40.0-44.9 in adult Z68.41 [id number] [place] [address] [id number] Jul, Morbid (severe) obesity due to excess calories E66.01 ; Body mass index (BMI) of 40.0-44.9 in adult Z68.41 ; Anxiety F41.9 and BMI 40.0-44.9, adult Z68.41 [facility] [id number] [place] [address] [id number] June, [facility] [id number] [place] [address] [id number] Apr, Influenza-like illness R69 ; BMI 40.0-44.9, adult Z68.41 and Follow-up exam Z09 [facility] [id number] [place] [address] [id number] Mar, Influenza-like illness R69 and BMI 40.0-44.9, adult Z68.41 [facility] [id number] [place] [address] [id number] Dec, [facility] [address] [id number] Nov, Dysuria R30.0 [facility] [id number] [place] [address] [id number] Sep, Mild single current episode of major depressive disorder F32.0 and Anxiety F41.9 [facility] [id number] [place] [address] [id number] Sep, Anxiety F41.9 [facility] [id number] [place] [address] [id number] Aug, Mild single current episode of major depressive disorder F32.0 and Anxiety F41.9 [facility] [id number] [place] [address] [id number] Aug, Anxiety F41.9 [facility] [id number] [place] [address] [id number] Jul, Anxiety F41.9 and Stressful life event affecting family Z63.79 [facility] [id number] [place] [address] [id number] June, Anxiety F41.9 and Stressful life event affecting family Z63.79 [facility] [id number] [place] [address] [id number] May, Increased glucose level R73.09 [facility] [id number], [place] [id number] 14 May, 2016 Anxiety F41.9 ; Stressful life event affecting family Z63.79 ; Screening for thyroid disorder Z13.29 and Screening for lipid disorders Z13.220 [facility] [id number], [place] [id number] 31 Apr, 2016 Encounter for removal of skin lesion L98.9 and Genital warts A63.0 [facility] [address] [place] [address] [id number] 27 Apr, 2016 High risk sexual behavior Z72.51 ; Genital warts A63.0 ; Screening for STD sexually transmitted disease Z11.3 ; Other specified bacterial agents as the cause of diseases classified elsewhere B96.89 and Acute vaginitis N76.0 [facility] [id number] [place] [place] [phone] 14 May, 2014 [facility] [id number] [place] [phone] May, [facility] [id number] [place] [phone] Feb, [facility] [id number] [place] [address] [id number] Feb, [facility] [id number] [place] [phone] Feb, [address]100[place], [place] [id number] Dec, [facility] [address] [place] [address] [id number] Dec, [facility] [id number] [place] [phone] Dec, [facility] [id number] [place] [phone] Dec, [facility] [id number], [place] [phone] Dec, [facility] [id number] [place] [phone] Dec, [facility] [address]00565100[place], [place] [address] Dec, [address]005[address]100[place], [place] [id number] Dec, [facility] [address]00565100[place], [place] [address] Dec, [address]005[address]100[place], [place] [id number] Dec, [facility] [address]00565100[place], [place] [address] Dec, [facility] [address]00565100[place], [place] [address] Dec, [facility] [address]00565100[place], [place] [address] Dec, [facility] [address]00565100[place], [place] [address] Dec, [id number], [place] [phone] Dec, IMMUNIZATIONS No Known Immunizations SOCIAL HISTORY Never Assessed REASON FOR VISIT RX-Fluoxetine refill PLAN OF CARE VITAL SIGNS MEDICATIONS Medication Instructions Dosage Frequency Start Date End Date Duration Status Fluoxetine HCl 20 mg Orally Once a day 1 capsule in the morning 24h Active RESULTS No Results PROCEDURES No Known procedures INSTRUCTIONS MEDICATIONS ADMINISTERED No Known Medications MEDICAL (GENERAL) HISTORY Type Description Date Medical History depression Medical History obesity Surgical History tonsillectomy and adenoidectomy Surgical History cholecystectomy Surgical History appendectomy Surgical History tubal ligation
--- OUTSIDE RECORDS SUMMARY | 2018-08-09 06:10 | XMS REPORT ---
Author Author ADOLFO BERRIOS Organization [facility] Address [address] [place] [address] Care Team Providers Care Movie Extra Name Role Phone ADOLFO BERRIOS Unavailable PROBLEMS Type Condition ICD9-CM Code OVZ01-DX Code Onset Dates Condition Status SNOMED Code Problem Morbid (severe) obesity due to excess calories E66.01 Active 51382411339191 Problem Body mass index (BMI) of 40.0-44.9 in adult Z68.41 Active 577091763 Problem Anxiety F41.9 Active 35950202 Problem Genital warts A63.0 Active 500839469 Problem Mild single current episode of major depressive disorder F32.0 Active 84237883 Problem Stressful life event affecting family Z63.79 Active 950639104 ALLERGIES Substance Reaction Event Type Date Status Penicillin V Potassium hives Drug Allergy Jul, Active Betadine anaphylaxis Drug Allergy Jul, Active ENCOUNTERS Encounter Location Date Diagnosis [address] [place] [address] [id number] Sep, Gastroenteritis K52.9 [id number] [place] [address] [id number] Aug, Anxiety F41.9 ; Morbid (severe) obesity due to excess calories E66.01 and Body mass index (BMI) of 40.0-44.9 in adult Z68.41 [address] [place] [place] [address] [id number] Jul, Morbid (severe) obesity due to excess calories E66.01 ; Body mass index (BMI) of 40.0-44.9 in adult Z68.41 ; Anxiety F41.9 and BMI 40.0-44.9, adult Z68.41 [address] [place] [address] [id number] June, [id number], [place] [phone] Apr, Influenza-like illness R69 ; BMI 40.0-44.9, adult Z68.41 and Follow-up exam Z09 [facility] [place] [id number] [place] [address] [id number] Mar, Influenza-like illness R69 and BMI 40.0-44.9, adult Z68.41 [facility] [place] [id number] [place] [address] [id number] Dec, [facility] [place] [id number] [place] [address] [id number] Nov, Dysuria R30.0 [facility] [place] [id number] [place] [address] [id number] Sep, Mild single current episode of major depressive disorder F32.0 and Anxiety F41.9 [facility] [id number] [place] [address] [id number] Sep, Anxiety F41.9 [facility] [place] [id number] [place] [address] [id number] Aug, Mild single current episode of major depressive disorder F32.0 and Anxiety F41.9 [facility] [place] [id number] [place] [address] [id number] Aug, Anxiety F41.9 [facility] [place] [id number] [place] [address] [id number] Jul, Anxiety F41.9 and Stressful life event affecting family Z63.79 [facility] [place] [id number] [place] [address] [id number] June, Anxiety F41.9 and Stressful life event affecting family Z63.79 [facility] [id number] [place] [address] [id number] May, Increased glucose level R73.09 [facility] [place] [id number] [place] [address] [id number] 14 May, 2016 Anxiety F41.9 ; Stressful life event affecting family Z63.79 ; Screening for thyroid disorder Z13.29 and Screening for lipid disorders Z13.220 [facility] [id number][place] [id number] 31 Apr, 2016 Encounter for removal of skin lesion L98.9 and Genital warts A63.0 [facility] [id number] [place] [address] [id number] 27 Apr, 2016 High risk sexual behavior Z72.51 ; Genital warts A63.0 ; Screening for STD sexually transmitted disease Z11.3 ; Other specified bacterial agents as the cause of diseases classified elsewhere B96.89 and Acute vaginitis N76.0 [facility] [address] [id number] [address] May, [facility] [id number] [place] [address] May, [facility] [id number] [place] [address] Feb, [facility] [id number], [place] [phone] Feb, [facility] [id number] [place] [address] Feb, [facility] [id number] [place] [address] [id number] Dec, [facility] [id number] [place] [address] [id number] Dec, [facility] [address]005[address]100[place], [place] [address] Dec, [facility] [address] [place] [address] Dec, [facility] [id number], [place] [phone] Dec, [facility] [id number] [place] [phone] Dec, [facility] [address]005[address]100[place], [place] [address] Dec, [facility] [id number] [place] [address] [phone] Dec, [facility] [address] [facility] [id number] [address] Dec, [facility] [address] [facility] [id number][place] [phone] Dec, [facility] [address] [facility] [id number], [place] [address] Dec, [facility] [address] [facility] [id number], [place] [address] Dec, [facility] [address] [facility] [id number], [place] [address] Dec, [facility] [address] [facility] [id number], [place] [address] Dec, [facility] [address] [facility] [id number][place] [phone] Dec, IMMUNIZATIONS No Known Immunizations SOCIAL HISTORY Never Assessed REASON FOR VISIT CH- Anxiety f/u Thompson [facility]ANG PLAN OF CARE Activity Details Follow Up 4 Weeks Reason:CHM Wt Management VITAL SIGNS Height 68 in 2017-07-12 Weight 271.0 lbs 2017-07-12 Temperature 96.9 degrees Fahrenheit 2017-07-12 Heart Rate 80 bpm 2017-07-12 Respiratory Rate 16 2017-07-12 BMI 41.20 kg/m2 2017-07-12 Blood pressure systolic 128 mmHg 2017-07-12 Blood pressure diastolic 78 mmHg 2017-07-12 MEDICATIONS Medication Instructions Dosage Frequency Start Date End Date Duration Status Fluoxetine HCl 20 mg Orally Once a day 1 capsule in the morning 24h 0 Active BusPIRone HCl 10 mg Orally Twice a day 1 tablet 12h 0 days Active Phentermine HCl 37.5 MG Orally Once a day 1 capsule 24h Jul, 2 Aug, 2017 28 days Active RESULTS No Results PROCEDURES No Known procedures INSTRUCTIONS MEDICATIONS ADMINISTERED No Known Medications MEDICAL (GENERAL) HISTORY Type Description Date Medical History depression Medical History obesity Surgical History tonsillectomy and adenoidectomy Surgical History cholecystectomy Surgical History appendectomy Surgical History tubal ligation
--- OUTSIDE RECORDS SUMMARY | 2018-08-09 06:10 | XMS REPORT ---
Author Author TACOS Bloom Organization [facility] Address [address] [place] [address] Care Team Providers Care Engineering Program Analyst Name Role Phone Wolf TACOS Unavailable PROBLEMS Type Condition ICD9-CM Code LDK52-CW Code Onset Dates Condition Status SNOMED Code Problem Morbid (severe) obesity due to excess calories E66.01 Active 95368228041460 Problem Body mass index (BMI) of 40.0-44.9 in adult Z68.41 Active 683551551 Problem Anxiety F41.9 Active 73823543 Problem Genital warts A63.0 Active 742148783 Problem Mild single current episode of major depressive disorder F32.0 Active 82535307 Problem Stressful life event affecting family Z63.79 Active 591835195 ALLERGIES Substance Reaction Event Type Date Status Penicillin V Potassium hives Drug Allergy Sep, Active Betadine anaphylaxis Drug Allergy Sep, Active ENCOUNTERS Encounter Location Date Diagnosis [place] [id number] [place] [address] [id number] Dec, [address] [place] [address] [phone] Nov, Fungal rash of torso B36.9 and BMI 40.0-44.9, adult Z68.41 [facility] [address] [place] [address] [id number] Sep, Gastroenteritis K52.9 [address] [place] [id number] [place] [address] [id number] Aug, Anxiety F41.9 ; Morbid (severe) obesity due to excess calories E66.01 and Body mass index (BMI) of 40.0-44.9 in adult Z68.41 [facility] [address] [place] [address] [id number] Jul, Morbid (severe) obesity due to excess calories E66.01 ; Body mass index (BMI) of 40.0-44.9 in adult Z68.41 ; Anxiety F41.9 and BMI 40.0-44.9, adult Z68.41 [facility] [id number] [place] [address] [id number] June, [facility] [id number] [place] [address] [id number] Apr, Influenza-like illness R69 ; BMI 40.0-44.9, adult Z68.41 and Follow-up exam Z09 [facility] [id number] [place] [address] [id number] Mar, Influenza-like illness R69 and BMI 40.0-44.9, adult Z68.41 [facility] [id number] [place] [address] [id number] Dec, [facility] [place] [id number] [place] [address] [id number] Nov, Dysuria R30.0 [facility] [id number] [place] [address] [id number] Sep, Mild single current episode of major depressive disorder F32.0 and Anxiety F41.9 [facility] [id number] [place] [address] [id number] Sep, Anxiety F41.9 [facility] [place] [id number] [place] [address] [id number] Aug, Mild single current episode of major depressive disorder F32.0 and Anxiety F41.9 [facility] [id number] [place] [address] [id number] Aug, Anxiety F41.9 [facility] [id number] [place] [address] [id number] Jul, Anxiety F41.9 and Stressful life event affecting family Z63.79 [facility] [place] [id number] [place] [address] [id number] June, Anxiety F41.9 and Stressful life event affecting family Z63.79 [facility] [id number] [place] [address] [id number] May, Increased glucose level R73.09 [facility] [address] [address] [id number] [id number] 14 May, 2016 Anxiety F41.9 ; Stressful life event affecting family Z63.79 ; Screening for thyroid disorder Z13.29 and Screening for lipid disorders Z13.220 [facility] [id number] [id number] 31 Apr, 2016 Encounter for removal of skin lesion L98.9 and Genital warts A63.0 [facility] [id number] [place] [id number] 27 Apr, 2016 High risk sexual behavior Z72.51 ; Genital warts A63.0 ; Screening for STD sexually transmitted disease Z11.3 ; Other specified bacterial agents as the cause of diseases classified elsewhere B96.89 and Acute vaginitis N76.0 [facility] [id number] [place] [phone] May, [facility] [id number] [place] [phone] May, [facility] [id number] [place] [phone] Feb, [facility] [id number] [place] [phone] Feb, [facility] [id number] [place] [phone] Feb, [facility] [id number] [place] [phone] Dec, [facility] [id number] [place] [phone] Dec, [facility] [id number] [place] [phone] Dec, [facility] [id number] [place] [phone] Dec, [facility] [id number] [place] [address] [phone] Dec, [facility] [address] [address] Dec, [facility] [address] [address] Dec, [facility] [address]00565100[place] [phone] Dec, [facility] [address] [address] Dec, [facility] [address]00565100[place] [phone] Dec, [facility] [address] [place] [phone] Dec, [facility] [address] [address] Dec, [facility] [id number] [place] [phone] Dec, [facility] [address] [address] Dec, [facility] [address]65100[place] [phone] Dec, IMMUNIZATIONS No Known Immunizations SOCIAL HISTORY Never Assessed REASON FOR VISIT Fever since Wednesday evening, vomiting x 2 days, diarrhea x 2 days, dizzy, nauseat ed, weak still today--ADARSH Hudson, Needs note to return to work PLAN OF CARE Activity Details Follow Up prn Reason: VITAL SIGNS Height 68 in 2017-09-09 Weight 253.4 lbs 2017-09-09 Temperature 100.0 degrees Fahrenheit 2017-09-09 Heart Rate 68 bpm 2017-09-09 Respiratory Rate 16 2017-09-09 BMI 38.53 kg/m2 2017-09-09 Blood pressure systolic 124 mmHg 2017-09-09 Blood pressure diastolic 84 mmHg 2017-09-09 MEDICATIONS Medication Instructions Dosage Frequency Start Date End Date Duration Status Promethazine HCl 50 mg Orally every 6 hrs 0.5 tablet as needed for nausea 6h Sep, Sep, 05 days Active Phentermine HCl 37.5 MG Orally Once a day 1 capsule 24h 3 Sep, 2017 28 days Active Fluoxetine HCl 20 mg Orally Once a day 1 capsule in the morning 24h 0 Active BusPIRone HCl 10 mg Orally Twice a day 1 tablet 12h 0 days Active RESULTS No Results PROCEDURES No Known procedures INSTRUCTIONS MEDICATIONS ADMINISTERED No Known Medications MEDICAL (GENERAL) HISTORY Type Description Date Medical History depression Medical History obesity Surgical History tonsillectomy and adenoidectomy Surgical History cholecystectomy Surgical History appendectomy Surgical History tubal ligation
--- OUTSIDE RECORDS SUMMARY | 2018-08-09 06:10 | XMS REPORT ---
Author Author SASHA PIZANO [facility] Address [address] [place] [address] Care Team Providers Care Migratory Game Bird Biologist Name Role Phone HARINDER SASHA Unavailable PROBLEMS Type Condition ICD9-CM Code VKT26-XE Code Onset Dates Condition Status SNOMED Code Problem Morbid (severe) obesity due to excess calories E66.01 Active 80235691920357 Problem Body mass index (BMI) of 40.0-44.9 in adult Z68.41 Active 061352642 Problem Anxiety F41.9 Active 95970289 Problem Genital warts A63.0 Active 078594875 Problem Mild single current episode of major depressive disorder F32.0 Active 58570897 Problem Stressful life event affecting family Z63.79 Active 273743762 ALLERGIES No Information ENCOUNTERS Encounter Location Date Diagnosis [facility] [address] [place] [address] Jan, [facility] [address] [address] Jan, [facility] [id number] [place] [address] [id number] Dec, [facility] [id number] [place] [address] [id number] Nov, Fungal rash of torso B36.9 and BMI 40.0-44.9, adult Z68.41 [facility] [id number] [place] [address] [id number] Sep, Gastroenteritis K52.[address] [id number] Aug, Anxiety F41.9 ; Morbid (severe) obesity due to excess calories E66.01 and Body mass index (BMI) of 40.0-44.9 in adult Z68.41 [facility] [id number] [place] [address] [id number] Jul, Morbid (severe) obesity due to excess calories E66.01 ; Body mass index (BMI) of 40.0-44.9 in adult Z68.41 ; Anxiety F41.9 and BMI 40.0-44.9, adult Z68.41 [facility] [id number] [place] [address] [id number] June, [facility] [id number] [place] [address] [id number] Apr, Influenza-like illness R69 ; BMI 40.0-44.9, adult Z68.41 and Follow-up exam Z09 [facility] [id number] [place] [address] [id number] Mar, Influenza-like illness R69 and BMI 40.0-44.9, adult Z68.41 [facility] [id number] [place] [address] [id number] Dec, [facility] [id number] [place] [address] [id number] Nov, Dysuria R30.0 [facility] [id number] [place] [address] [id number] Sep, Mild single current episode of major depressive disorder F32.0 and Anxiety F41.9 [facility] [id number] [place] [address] [id number] Sep, Anxiety F41.9 [facility] [id number] [place] [address] [id number] Aug, Mild single current episode of major depressive disorder F32.0 and Anxiety F41.9 [facility] [id number] [place] [address] [id number] Aug, Anxiety F41.9 [facility] [id number] [place] [address] [id number] Jul, Anxiety F41.9 and Stressful life event affecting family Z63.79 [facility] [id number] [place] [address] [id number] June, Anxiety F41.9 and Stressful life event affecting family Z63.79 [facility] [id number][place] [phone] May, Increased glucose level R73.09 [facility] [id number] [place] [address] [id number] 14 May, 2016 Anxiety F41.9 ; Stressful life event affecting family Z63.79 ; Screening for thyroid disorder Z13.29 and Screening for lipid disorders Z13.220 [facility] [id number] [place] [address] [id number] 31 Apr, 2016 Encounter for removal of skin lesion L98.9 and Genital warts A63.0 [facility] [id number] [place] [address] [id number] Apr, High risk sexual behavior Z72.51 ; Genital warts A63.0 ; Screening for STD sexually transmitted disease Z11.3 ; Other specified bacterial agents as the cause of diseases classified elsewhere B96.89 and Acute vaginitis N76.0 [facility] [id number] [place] [phone] May, [facility] [id number] [place] [phone] May, [facility] [id number] [place] [phone] Feb, [facility] [id number], [place] [phone] Feb, [facility] [id number] [place] [address] Feb, [facility] [id number], [place] [phone] Dec, [facility] [id number], [place] [phone] Dec, [facility] [id number] [place] [phone] Dec, [facility] [id number] [place] [phone] Dec, [facility] [id number] [place] [address] [id number] Dec, [facility] [address] [address] Dec, [facility] [address]100[place], [place] [address] Dec, [place] [id number] [phone] Dec, [facility] [address]100[place] [address] Dec, [address] [id number][place] [phone] Dec, [facility] [address] [address] Dec, [facility] [address], [place] [address] Dec, [facility] [address], [place] [address] Dec, [facility] [id number] [address] Dec, [place] [id number] [phone] Dec, IMMUNIZATIONS No Known Immunizations SOCIAL HISTORY Never Assessed REASON FOR VISIT Medication question PLAN OF CARE VITAL SIGNS MEDICATIONS Medication [...]
--- OUTSIDE RECORDS SUMMARY | 2018-08-09 06:10 | XMS REPORT ---
Author Author ADOLFO BERRIOS Organization [facility] Address [address] [place] [address] Care Team Providers Care Floral Designer Salesperson Name Role Phone ADOLFO BERRIOS Unavailable PROBLEMS Type Condition ICD9-CM Code EUF51-OH Code Onset Dates Condition Status SNOMED Code Problem Morbid (severe) obesity due to excess calories E66.01 Active 11295006701663 Problem Body mass index (BMI) of 40.0-44.9 in adult Z68.41 Active 272658357 Problem Anxiety F41.9 Active 88717192 Problem Genital warts A63.0 Active 353648814 Problem Mild single current episode of major depressive disorder F32.0 Active 07514278 Problem Stressful life event affecting family Z63.79 Active 112666970 ALLERGIES Substance Reaction Event Type Date Status Penicillin V Potassium hives Drug Allergy Aug, Active Betadine anaphylaxis Drug Allergy Aug, Active ENCOUNTERS Encounter Location Date Diagnosis [address] [place] [address] [phone] Sep, Gastroenteritis K52.9 [id number] [place] [address] [id number] Aug, Anxiety F41.9 ; Morbid (severe) obesity due to excess calories E66.01 and Body mass index (BMI) of 40.0-44.9 in adult Z68.41 [address] [id number] [place] [address] [id number] Jul, Morbid (severe) obesity due to excess calories E66.01 ; Body mass index (BMI) of 40.0-44.9 in adult Z68.41 ; Anxiety F41.9 and BMI 40.0-44.9, adult Z68.41 [address] [place] [address] [id number] June, [id number][place] [id number] Apr, Influenza-like illness R69 ; BMI 40.0-44.9, adult Z68.41 and Follow-up exam Z09 [facility] [id number] [place] [address] [id number] Mar, Influenza-like illness R69 and BMI 40.0-44.9, adult Z68.41 [facility] [id number] [place] [address] [id number] Dec, [facility] [id number] [place] [address] [id number] Nov, Dysuria R30.0 [facility] [id number] [place] [address] [id number] Sep, Mild single current episode of major depressive disorder F32.0 and Anxiety F41.9 [facility] [id number] [place] [address] [id number] Sep, Anxiety F41.9 [facility] [address] [place] [address] [id number] Aug, Mild single current episode of major depressive disorder F32.0 and Anxiety F41.9 [facility] [place] [address] [place] [address] [id number] Aug, Anxiety F41.9 [facility] [place] [id number] [place] [address] [id number] Jul, Anxiety F41.9 and Stressful life event affecting family Z63.79 [facility] [id number] [place] [address] [id number] June, Anxiety F41.9 and Stressful life event affecting family Z63.79 [facility] [id number] [place] [address] [id number] May, Increased glucose level R73.09 [facility] [id number] [place] [address] [id number] 14 May, 2016 Anxiety F41.9 ; Stressful life event affecting family Z63.79 ; Screening for thyroid disorder Z13.29 and Screening for lipid disorders Z13.220 [facility] [id number][place] [id number] 31 Apr, 2016 Encounter for removal of skin lesion L98.9 and Genital warts A63.0 [facility] [id number] [place] [address] [id number] 27 Apr, 2016 High risk sexual behavior Z72.51 ; Genital warts A63.0 ; Screening for STD sexually transmitted disease Z11.3 ; Other specified bacterial agents as the cause of diseases classified elsewhere B96.89 and Acute vaginitis N76.0 [facility] [address] [id number] [address] May, [facility] [id number] [place] [address] May, [facility] [id number] [place] [address] Feb, [facility] [id number][place] [id number] Feb, [facility] [id number] [place] [address] Feb, [facility] [id number] [place] [address] [id number] Dec, [facility] [id number] [place] [address] [id number] Dec, [facility] [address]65[address] [address] Dec, [facility] [address] [place] [address] Dec, [facility] [id number], [place] [phone] Dec, [facility] [id number] [place] [address] Dec, [facility] [address] [address] Dec, [facility] [id number] [place] [address] [id number] Dec, [facility] [address] [facility] [id number] [address] Dec, [facility] [address] [facility] [id number][place] [phone] Dec, [facility] [address] [facility] [id number] [place] [address] Dec, [facility] [address] [facility] [id number] [place] [address] Dec, [facility] [address] [facility] [id number] [place] [address] Dec, [facility] [address] [facility] [id number] [place] [address] Dec, [facility] [address] [facility] [id number], [place] [phone] Dec, IMMUNIZATIONS No Known Immunizations SOCIAL HISTORY Never Assessed REASON FOR VISIT [facility]- 4 week f/i weight management [facility] PLAN OF CARE Activity Details Follow Up 4 Weeks Reason:Weight management VITAL SIGNS Height 68 in 2017-08-13 Weight 262.6 lbs 2017-08-13 Temperature 97.6 degrees Fahrenheit 2017-08-13 Heart Rate 82 bpm 2017-08-13 Respiratory Rate 16 2017-08-13 BMI 39.92 kg/m2 2017-08-13 Blood pressure systolic 124 mmHg 2017-08-13 Blood pressure diastolic 78 mmHg 2017-08-13 MEDICATIONS Medication Instructions Dosage Frequency Start Date End Date Duration Status Fluoxetine HCl 20 mg Orally Once a day 1 capsule in the morning 24h 0 Active BusPIRone HCl 10 mg Orally Twice a day 1 tablet 12h 0 days Active Phentermine HCl 37.5 MG Orally Once a day 1 capsule 24h 3 Sep, 2017 28 days Active RESULTS No Results PROCEDURES No Known procedures INSTRUCTIONS MEDICATIONS ADMINISTERED No Known Medications MEDICAL (GENERAL) HISTORY Type Description Date Medical History depression Medical History obesity Surgical History tonsillectomy and adenoidectomy Surgical History cholecystectomy Surgical History appendectomy Surgical History tubal ligation
--- OUTSIDE RECORDS SUMMARY | 2018-08-09 06:10 | XMS REPORT ---
Author Author SASHA PIZANO [facility] Address [address] [place] [address] Care Team Providers Care Pearl Digger Name Role Phone HARINDER SASHA Unavailable PROBLEMS Type Condition ICD9-CM Code MYB21-YP Code Onset Dates Condition Status SNOMED Code Problem Morbid (severe) obesity due to excess calories E66.01 Active 24506416960548 Problem Body mass index (BMI) of 40.0-44.9 in adult Z68.41 Active 736983782 Problem Anxiety F41.9 Active 75196868 Problem Genital warts A63.0 Active 885438255 Problem Mild single current episode of major depressive disorder F32.0 Active 46806191 Problem Stressful life event affecting family Z63.79 Active 927880968 ALLERGIES Substance Reaction Event Type Date Status Penicillin V Potassium hives Drug Allergy Nov, Active Betadine anaphylaxis Drug Allergy Nov, Active ENCOUNTERS Encounter Location Date Diagnosis [address] [id number] [place] [address] [id number] Nov, Fungal rash of torso B36.9 and BMI 40.0-44.9, adult Z68.[address] [place] [address] [id number] Sep, Gastroenteritis K52.9 [address] [place] [id number] [place] [address] [id number] Aug, Anxiety F41.9 ; Morbid (severe) obesity due to excess calories E66.01 and Body mass index (BMI) of 40.0-44.9 in adult Z68.[address] [place] [address] [id number] Jul, Morbid (severe) obesity due to excess calories E66.01 ; Body mass index (BMI) of 40.0-44.9 in adult Z68.41 ; Anxiety F41.9 and BMI 40.0-44.9, adult Z68.41 [facility] [id number] [place] [address] [id number] June, [facility] [address] [id number] Apr, Influenza-like illness R69 ; BMI 40.0-44.9, adult Z68.41 and Follow-up exam Z09 [facility] [id number] [place] [address] [id number] Mar, Influenza-like illness R69 and BMI 40.0-44.9, adult Z68.41 [facility] [id number] [place] [address] [id number] Dec, [facility] [address] [id number] Nov, Dysuria R30.0 [facility] [id number] [place] [address] [id number] Sep, Mild single current episode of major depressive disorder F32.0 and Anxiety F41.9 [facility] [id number] [place] [address] [id number] Sep, Anxiety F41.9 [facility] [id number] [place] [address] [id number] Aug, Mild single current episode of major depressive disorder F32.0 and Anxiety F41.9 [facility] [id number] [place] [address] [id number] Aug, Anxiety F41.9 [facility] [id number] [place] [address] [id number] Jul, Anxiety F41.9 and Stressful life event affecting family Z63.79 [facility] [id number] [place] [address] [id number] June, Anxiety F41.9 and Stressful life event affecting family Z63.79 [facility] [id number] [place] [address] [id number] May, Increased glucose level R73.09 [facility] [id number] [place] [address] [id number] 14 Apr, 2017 Anxiety F41.9 ; Stressful life event affecting family Z63.79 ; Screening for thyroid disorder Z13.29 and Screening for lipid disorders Z13.220 [facility] [id number] [place] [address] [id number] 31 Apr, 2016 Encounter for removal of skin lesion L98.9 and Genital warts A63.0 [facility] [id number], [place] [id number] 27 Apr, 2016 High risk sexual behavior Z72.51 ; Genital warts A63.0 ; Screening for STD sexually transmitted disease Z11.3 ; Other specified bacterial agents as the cause of diseases classified elsewhere B96.89 and Acute vaginitis N76.0 [facility] [id number] [place] [address] May, [facility] [id number] [place] [address] May, [facility] [id number] [place] [phone] Feb, [facility] [id number] [place] [address] [id number] Feb, [facility] [id number] [place] [address] Feb, [facility] [id number] [place] [address] [id number] Dec, [facility] [address] [place] [address] [phone] Dec, [facility] [id number] [place] [address] Dec, [facility] [id number] [place] [address] Dec, [facility] [address] [place] [address] [id number] Dec, [facility] [id number] [place] [address] Dec, [facility] [address] [id number], [place] [address] 18 Dec, 2012 [facility] [address] [id number] [phone] Dec, [facility] [address], [place] [address] Dec, [facility] [address] [id number] [phone] Dec, [facility] [id number] [place] [address] Dec, [facility] [address], [place] [address] Dec, [facility] [address] [place] [address] Dec, [facility] [address], [place] [address] Dec, [facility] [address] [id number] [phone] Dec, IMMUNIZATIONS No Known Immunizations SOCIAL HISTORY Never Assessed REASON FOR VISIT rash, for 1 month. has grown in size but not spread, has used OTC bendryl and co rtizone cream Kallie So MA PLAN OF CARE Activity Details Follow Up prn Reason: VITAL SIGNS Height 68 in 2017-12-08 Weight 266.8 lbs 2017-12-08 Temperature 96.7 degrees Fahrenheit 2017-12-08 Heart Rate 75 bpm 2017-12-08 Respiratory Rate 14 2017-12-08 BMI 40.56 kg/m2 2017-12-08 Blood pressure systolic 122 mmHg 2017-12-08 Blood pressure diastolic 80 mmHg 2017-12-08 MEDICATIONS Medication Instructions Dosage Frequency Start Date End Date Duration Status BusPIRone HCl 10 mg Orally Twice a day 1 tablet 12h Active Terbinafine HCl 1 % Externally Twice a day 1 application to affected area, apply 7 days after symptoms subside 12h Nov, 14 Dec, 2017 14 days Active Fluoxetine HCl 20 mg Orally [...]
--- OUTSIDE RECORDS SUMMARY | 2018-08-09 06:11 | XMS REPORT ---
Author Author ADOLFO BERRIOS Organization [facility] Address [address] [place] [address] Care Team Providers Care Masseur/Masseuse Name Role Phone ADOLFO BERRIOS Unavailable PROBLEMS Type Condition ICD9-CM Code ETH68-IF Code Onset Dates Condition Status SNOMED Code Problem Morbid (severe) obesity due to excess calories E66.01 Active 09511231272452 Problem Body mass index (BMI) of 40.0-44.9 in adult Z68.41 Active 588193295 Problem Anxiety F41.9 Active 18704502 Problem Genital warts A63.0 Active 159704500 Problem Mild single current episode of major depressive disorder F32.0 Active 30399287 Problem Stressful life event affecting family Z63.79 Active 569643220 ALLERGIES Substance Reaction Event Type Date Status Penicillin V Potassium hives Drug Allergy Mar, Active Betadine anaphylaxis Drug Allergy Mar, Active ENCOUNTERS Encounter Location Date Diagnosis [address] [place] [address] [id number] Sep, Gastroenteritis K52.9 [address] [id number] [place] [address] [id number] Aug, Anxiety F41.9 ; Morbid (severe) obesity due to excess calories E66.01 and Body mass index (BMI) of 40.0-44.9 in adult Z68.41 [address] [place] [address] [id number] Jul, Morbid (severe) obesity due to excess calories E66.01 ; Body mass index (BMI) of 40.0-44.9 in adult Z68.41 ; Anxiety F41.9 and BMI 40.0-44.9, adult Z68.41 [address] [place] [address] [id number] June, [id number][place] [id number] Apr, Influenza-like illness R69 ; BMI 40.0-44.9, adult Z68.41 and Follow-up exam Z09 [facility] [id number] [place] [address] [id number] Mar, Influenza-like illness R69 and BMI 40.0-44.9, adult Z68.41 [facility] [id number] [place] [address] [id number] Dec, [facility] [id number] [place] [address] [id number] Nov, Dysuria R30.0 [facility] [id number] [place] [address] [id number] Sep, Mild single current episode of major depressive disorder F32.0 and Anxiety F41.9 [facility] [id number] [place] [address] [id number] Sep, Anxiety F41.9 [facility] [id number] [place] [address] [id number] Aug, Mild single current episode of major depressive disorder F32.0 and Anxiety F41.9 [facility] [place] [id number] [place] [address] [id number] Aug, Anxiety F41.9 [facility] [place] [id number] [place] [address] [id number] Jul, Anxiety F41.9 and Stressful life event affecting family Z63.79 [facility] [id number] [place] [address] [id number] June, Anxiety F41.9 and Stressful life event affecting family Z63.79 [facility] [address] [id number] [place] [address] [id number] May, Increased glucose level R73.09 [facility] [id number] [place] [address] [id number] 14 May, 2016 Anxiety F41.9 ; Stressful life event affecting family Z63.79 ; Screening for thyroid disorder Z13.29 and Screening for lipid disorders Z13.220 [facility] [id number][place] [id number] 31 Apr, 2016 Encounter for removal of skin lesion L98.9 and Genital warts A63.0 [facility] [id number] [place] [address] [id number] 27 Apr, 2016 High risk sexual behavior Z72.51 ; Genital warts A63.0 ; Screening for STD sexually transmitted disease Z11.3 ; Other specified bacterial agents as the cause of diseases classified elsewhere B96.89 and Acute vaginitis N76.0 [facility] [address] [id number] [address] May, [facility] [id number] [place] [address] May, [facility] [id number] [place] [address] Feb, [facility] [id number][place] [phone] Feb, [facility] [id number] [place] [address] Feb, [facility] [id number] [place] [address] [phone] Dec, [facility] [id number] [place] [address] [id number] Dec, [facility] [address], [place] [address] Dec, [facility] [address] [place] [address] Dec, [facility] [id number][place] [id number] Dec, [facility] [id number] [place] [address] Dec, [facility] [address], [place] [address] Dec, [facility] [id number] [place] [address] [id number] Dec, [facility] [address] [id number], [place] [address] Dec, [facility] [address] [facility] [id number][place] [phone] Dec, [facility] [address] [id number], [place] [address] Dec, [facility] [address] [id number], [place] [address] Dec, [facility] [address] [id number], [place] [address] Dec, [facility] [address] [id number], [place] [address] Dec, [facility] [address] [facility] [id number][place] [phone] Dec, IMMUNIZATIONS No Known Immunizations SOCIAL HISTORY Never Assessed REASON FOR VISIT Pt c/o loss of energy, cold sweats started Wednesday Thompson BANG PLAN OF CARE Activity Details Follow Up prn Reason: VITAL SIGNS Height 68 in 2017-04-05 Weight 270.2 lbs 2017-04-05 Temperature 98.1 degrees Fahrenheit 2017-04-05 Heart Rate 80 bpm 2017-04-05 Respiratory Rate 18 2017-04-05 BMI 41.08 kg/m2 2017-04-05 Blood pressure systolic 130 mmHg 2017-04-05 Blood pressure diastolic 80 mmHg 2017-04-05 MEDICATIONS Medication Instructions Dosage Frequency Start Date End Date Duration Status BusPIRone HCl 10 mg Orally Twice a day 1 tablet 12h 0 Active Fluoxetine HCl 20 mg Orally Once a day 1 capsule in the morning 24h 0 Active RESULTS No Results PROCEDURES No Known procedures INSTRUCTIONS MEDICATIONS ADMINISTERED No Known Medications MEDICAL (GENERAL) HISTORY Type Description Date Medical History depression Medical History obesity Surgical History tonsillectomy and adenoidectomy Surgical History cholecystectomy Surgical History appendectomy Surgical History tubal ligation
--- OUTSIDE RECORDS SUMMARY | 2018-08-09 06:11 | XMS REPORT ---
Author Author ADOLFO BERRIOS Organization [facility] Address [address] [place] [address] Care Team Providers Care Cable Inspector Name Role Phone ADOLFO BERRIOS Unavailable PROBLEMS Type Condition ICD9-CM Code ZIA15-QP Code Onset Dates Condition Status SNOMED Code Problem Mild single current episode of major depressive disorder F32.0 Active 30068336 Problem Stressful life event affecting family Z63.79 Active 770996651 Problem Anxiety F41.9 Active 14806155 Problem Genital warts A63.0 Active 799889463 ALLERGIES Substance Reaction Event Type Date Status Penicillin V Potassium hives Drug Allergy May, Active Betadine anaphylaxis Drug Allergy May, Active SOCIAL HISTORY Never Assessed PLAN OF CARE Activity Details Follow Up 4 Weeks. Reason:CHm Anxiety VITAL SIGNS Height 68 in 2016-05-22 Weight 253.4 lbs 2016-05-22 Temperature 98.4 degrees Fahrenheit 2016-05-22 Heart Rate 92 bpm 2016-05-22 Respiratory Rate 18 2016-05-22 BMI 38.53 kg/m2 2016-05-22 Blood pressure systolic 153 mmHg 2016-05-22 Blood pressure diastolic 98 mmHg 2016-05-22 MEDICATIONS Medication Instructions Dosage Frequency Start Date End Date Duration Status Fluoxetine HCl 20 mg Orally Once a day 1 capsule in the morning 24h May, 0 days Active Alprazolam 0.5 MG Orally Twice a dayas needed for anxiety 1/2-1 tablet May, 0 days Active RESULTS Name Result Date Reference Range THYROID ANALYZER 2016-05-22 TSH 0.800 0.450-4.500 CBC 2016-05-22 WBC 4.3 3.4-10.8 RBC 4.66 3.77-5.28 Hemoglobin 13.1 11.1-15.9 Hematocrit 40.2 34.0-46.6 MCV 86 79-97 MCH 28.1 26.6-33.0 MCHC 32.6 31.5-35.7 RDW 14.4 12.3-15.4 Platelets 292 150-379 Neutrophils 71 Lymphs 24 Monocytes 4 Eos 1 Basos 0 Neutrophils (Absolute) 3.0 1.4-7.0 Lymphs (Absolute) 1.0 0.7-3.1 Monocytes(Absolute) 0.2 0.1-0.9 Eos (Absolute) 0.0 0.0-0.4 Baso (Absolute) 0.0 0.0-0.2 Immature Granulocytes 0 Immature Grans (Abs) 0.0 0.0-0.1 LIPID PANEL 2016-05-22 Cholesterol, Total 190 100-199 Triglycerides 93 0-149 HDL Cholesterol 49 >39 VLDL Cholesterol Jesus 19 5-40 LDL Cholesterol Calc 122 0-99 CMP 2016-05-22 Glucose, Serum 108 65-99 BUN 5 6-24 Creatinine, Serum 0.70 0.57-1.00 eGFR If NonAfricn Am 106 >59 eGFR If Africn Am 122 >59 BUN/Creatinine Ratio 7 9-23 Sodium, Serum 145 134-144 Potassium, Serum 4.1 3.5-5.2 Chloride, Serum 104 96-106 Carbon Dioxide, Total 25 18-29 Calcium, Serum 9.5 8.7-10.2 Protein, Total, Serum 7.0 6.0-8.5 Albumin, Serum 4.3 3.5-5.5 Globulin, Total 2.7 1.5-4.5 A/G Ratio 1.6 1.2-2.2 Bilirubin, Total 0.4 0.0-1.2 Alkaline Phosphatase, S 73 39-117 AST (SGOT) 30 0-40 ALT (SGPT) 32 0-32 PROCEDURES Procedure Date Ordered Result Body Site COMPLETE CBC W/AUTO DIFF WBC May 22, 2016 COMPREHEN METABOLIC PANEL May 22, 2016 LIPID PANEL May 22, 2016 ASSAY THYROID STIM HORMONE May 22, 2016 VENIPUNCT, ROUTINE* May 22, 2016 IMMUNIZATIONS No Known Immunizations MEDICAL (GENERAL) HISTORY Type Description Date Medical History depression Surgical History tonsillectomy and adenoidectomy Surgical History cholecystectomy Surgical History appendectomy Surgical History tubal ligation
--- OUTSIDE RECORDS SUMMARY | 2018-08-09 06:11 | XMS REPORT ---
Author Author ADOLFO BERRIOS Organization [facility] Address [address] [place] [address] Care Team Providers Care Manager Transportation Name Role Phone ALEKSANDRADOLFO ZHAO Unavailable PROBLEMS Type Condition ICD9-CM Code HAA10-NH Code Onset Dates Condition Status SNOMED Code Problem Mild single current episode of major depressive disorder F32.0 Active 53169501 Problem Stressful life event affecting family Z63.79 Active 899535449 Problem Anxiety F41.9 Active 67507762 Problem Genital warts A63.0 Active 182543679 ALLERGIES Substance Reaction Event Type Date Status Penicillin V Potassium hives Drug Allergy Jul, Active Betadine anaphylaxis Drug Allergy Jul, Active ENCOUNTERS Encounter Location Date Diagnosis [address] [id number] Apr, BMI 40.0-44.9, adult Z68.41 and Follow-up exam Z09 [id number] [place] [address] [id number] Mar, Influenza J11.1 and Influenza-like illness R69 [id number] [place] [address] [id number] Dec, [id number] [place] [address] [id number] Nov, Dysuria R30.0 [id number] [place] [address] [id number] Sep, Mild single current episode of major depressive disorder F32.0 and Anxiety F41.9 [id number] [place] [address] [id number] Sep, Anxiety F41.9 [id number] [place] [address] [id number] Aug, Mild single current episode of major depressive disorder F32.0 and Anxiety F41.9 [facility] [id number] [id number] Aug, Anxiety F41.9 [facility] [id number] [place] [address] [id number] Jul, Anxiety F41.9 and Stressful life event affecting family Z63.79 [place] [place] [place] [address] [id number] June, Anxiety F41.9 and Stressful life event affecting family Z63.79 [facility] [place] [id number] [place] [address] [id number] May, Increased glucose level R73.09 [place] [place] [address] [id number] 14 May, 2016 Anxiety F41.9 ; Stressful life event affecting family Z63.79 ; Screening for thyroid disorder Z13.29 and Screening for lipid disorders Z13.220 [address] [place] [address] [id number] 31 Apr, 2016 Encounter for removal of skin lesion L98.9 and Genital warts A63.0 [id number] [place] [address] [id number] Apr, High risk sexual behavior Z72.51 ; Genital warts A63.0 ; Screening for STD (sexually transmitted disease) Z11.3 ; Other specified bacterial agents as the cause of diseases classified elsewhere B96.89 and Acute vaginitis N76.0 [facility] [address] [place] [address] May, [facility] [id number] [place] [address] May, [facility] [id number] [place] [phone] Feb, [facility] [address] [place] [address] [phone] Feb, [facility] [id number] [place] [address] Feb, [facility] [address] [id number] [id number] Dec, [facility] [id number], [place] [id number] Dec, [facility] [address], [place] [address] Dec, [facility] [address], [place] [address] Dec, [facility] [id number], [place] [id number] Dec, [facility] [id number] [place] [address] Dec, [facility] [address] [id number], [place] [address] Dec, [facility] [id number], [place] [id number] Dec, [facility] [address]100[place], [place] [address] Dec, [facility] [id number], [place] [id number] Dec, [facility] [address], [place] [address] Dec, [facility] [address], [place] [address] Dec, [facility] [address], [place] [address] Dec, [facility] [address]100[place], [place] [address] Dec, [facility] [address] [id number] Dec, IMMUNIZATIONS No Known Immunizations SOCIAL HISTORY Never Assessed REASON FOR VISIT Anxiety follow up Antoinette BANG PLAN OF CARE Activity Details Follow Up 4 Weeks Reason:CHM anxiety VITAL SIGNS Height 68 in 2016-07-24 Weight 256.5 lbs 2016-07-24 Temperature 98.8 degrees Fahrenheit 2016-07-24 Heart Rate 82 bpm 2016-07-24 Respiratory Rate 16 2016-07-24 BMI 39.00 kg/m2 2016-07-24 Blood pressure systolic 130 mmHg 2016-07-24 Blood pressure diastolic 88 mmHg 2016-07-24 MEDICATIONS Medication Instructions Dosage Frequency Start Date End Date Duration Status Fluoxetine HCl 40 MG Orally Once a day 1 capsule in the morning 24h 0 days Active RESULTS No Results PROCEDURES No Known procedures INSTRUCTIONS MEDICATIONS ADMINISTERED No Known Medications MEDICAL (GENERAL) HISTORY Type Description Date Medical History depression Surgical History tonsillectomy and adenoidectomy Surgical History cholecystectomy Surgical History appendectomy Surgical History tubal ligation
--- OUTSIDE RECORDS SUMMARY | 2018-08-09 06:11 | XMS REPORT ---
Author Author ADOLFO BERRIOS Organization [facility] Address [address] [place] [address] Care Team Providers Care Retail Commission Sales Associate Name Role Phone ADOLFO BERRIOS Unavailable PROBLEMS Type Condition ICD9-CM Code UMV81-II Code Onset Dates Condition Status SNOMED Code Problem Morbid (severe) obesity due to excess calories E66.01 Active 54592422139855 Problem Body mass index (BMI) of 40.0-44.9 in adult Z68.41 Active 975390108 Problem Anxiety F41.9 Active 45174053 Problem Genital warts A63.0 Active 869986795 Problem Mild single current episode of major depressive disorder F32.0 Active 64722869 Problem Stressful life event affecting family Z63.79 Active 288662328 ALLERGIES Substance Reaction Event Type Date Status Penicillin V Potassium hives Drug Allergy Apr, Active Betadine anaphylaxis Drug Allergy Apr, Active ENCOUNTERS Encounter Location Date Diagnosis [address] [place] [address] [id number] Sep, Gastroenteritis K52.[address] [id number] [place] [address] [id number] Aug, Anxiety F41.9 ; Morbid (severe) obesity due to excess calories E66.01 and Body mass index (BMI) of 40.0-44.9 in adult Z68.[address] [id number] [place] [address] [id number] Jul, Morbid (severe) obesity due to excess calories E66.01 ; Body mass index (BMI) of 40.0-44.9 in adult Z68.41 ; Anxiety F41.9 and BMI 40.0-44.9, adult Z68.41 [address] [place] [address] [id number] June, [id number] [id number] Apr, Influenza-like illness R69 ; BMI 40.0-44.9, adult Z68.41 and Follow-up exam Z09 [facility] [id number] [place] [address] [id number] Mar, Influenza-like illness R69 and BMI 40.0-44.9, adult Z68.41 [facility] [id number] [place] [address] [id number] Dec, [facility] [id number] [place] [address] [id number] Nov, Dysuria R30.0 [facility] [id number] [place] [address] [id number] Sep, Mild single current episode of major depressive disorder F32.0 and Anxiety F41.9 [facility] [id number] [place] [address] [id number] Sep, Anxiety F41.9 [facility] [id number] [place] [address] [id number] Aug, Mild single current episode of major depressive disorder F32.0 and Anxiety F41.9 [facility] [place] [id number] [place] [address] [id number] Aug, Anxiety F41.9 [facility] [place] [id number] [place] [address] [id number] Jul, Anxiety F41.9 and Stressful life event affecting family Z63.79 [facility] [id number] [place] [address] [id number] June, Anxiety F41.9 and Stressful life event affecting family Z63.79 [facility] [address] [id number] [place] [address] [id number] May, Increased glucose level R73.09 [facility] [id number] [place] [address] [id number] 14 May, 2016 Anxiety F41.9 ; Stressful life event affecting family Z63.79 ; Screening for thyroid disorder Z13.29 and Screening for lipid disorders Z13.220 [facility] [id number] [place] [id number] 31 Apr, 2016 Encounter for removal of skin lesion L98.9 and Genital warts A63.0 [facility] [id number] [place] [address] [id number] Apr, 2016 High risk sexual behavior Z72.51 ; Genital warts A63.0 ; Screening for STD sexually transmitted disease Z11.3 ; Other specified bacterial agents as the cause of diseases classified elsewhere B96.89 and Acute vaginitis N76.0 [facility] [address] [id number] [address] May, [facility] [id number] [place] [phone] May, [facility] [id number] [place] [address] Feb, [facility] [id number] [place] [phone] Feb, [facility] [id number] [place] [address] Feb, [facility] [id number] [place] [address] [id number] Dec, [facility] [id number] [place] [address] [id number] Dec, [facility] [address], [place] [address] Dec, [facility] [address] [place] [address] Dec, [facility] [id number] [place] [phone] Dec, [facility] [id number] [place] [address] Dec, [facility] [address], [place] [address] Dec, [facility] [id number] [place] [address] [phone] Dec, [facility] [address] [facility] [id number], [place] [address] Dec, [facility] [address] [facility] [id number] [place] [id number] Dec, [facility] [address] [facility] [id number], [place] [address] Dec, [facility] [address] [facility] [id number], [place] [address] Dec, [facility] [address] [facility] [id number], [place] [address] Dec, [facility] [address] [facility] [id number][place] [address] Dec, [facility] [address] [facility] [id number] [place] [phone] Dec, IMMUNIZATIONS No Known Immunizations SOCIAL HISTORY Never Assessed REASON FOR VISIT still have the same symptoms Nolberto ALTAMIRANO PLAN OF CARE Activity Details Follow Up if s/s not improving with PCP or in Clinic Reason: VITAL SIGNS Height 68 in 2017-04-09 Weight 266.2 lbs 2017-04-09 Temperature 97.9 degrees Fahrenheit 2017-04-09 Heart Rate 104 bpm 2017-04-09 Respiratory Rate 20 2017-04-09 Oximetry 97 % 2017-04-09 BMI 40.47 kg/m2 2017-04-09 Blood pressure systolic 130 mmHg 2017-04-09 Blood pressure diastolic 80 mmHg 2017-04-09 MEDICATIONS Medication Instructions Dosage Frequency Start Date [...]
--- OUTSIDE RECORDS SUMMARY | 2018-08-09 06:11 | XMS REPORT ---
Author Author ADOLOF BERRIOS Organization [facility] Address [address] [place] [address] Care Team Providers Care Forming Machine Tender Name Role Phone NEGRA BERRIOSHA Unavailable PROBLEMS Type Condition ICD9-CM Code KUM37-EA Code Onset Dates Condition Status SNOMED Code Problem Mild single current episode of major depressive disorder F32.0 Active 47953098 Problem Stressful life event affecting family Z63.79 Active 932167999 Problem Anxiety F41.9 Active 66234916 Problem Genital warts A63.0 Active 110660781 ALLERGIES No Information ENCOUNTERS Encounter Location Date Diagnosis [address] [id number] Apr, BMI 40.0-44.9, adult Z68.41 and Follow-up exam Z09 [address] [id number] Mar, Influenza J11.1 and Influenza-like illness R69 [address] [id number] Dec, [id number] [place] [address] [id number] Nov, Dysuria R30.[address] [id number] Sep, Mild single current episode of major depressive disorder F32.0 and Anxiety F41.[address] [id number] Sep, Anxiety F41.[address] [id number] Aug, Mild single current episode of major depressive disorder F32.0 and Anxiety F41.[address] [id number] Aug, Anxiety F41.9 [facility] [id number], [place] [id number] Jul, Anxiety F41.9 and Stressful life event affecting family Z63.79 [facility] [id number], [place] [id number] June, Anxiety F41.9 and Stressful life event affecting family Z63.79 [facility] [id number] [place] [address] [id number] May, Increased glucose level R73.09 [facility] [id number] [place] [address] [id number] 14 May, 2016 Anxiety F41.9 ; Stressful life event affecting family Z63.79 ; Screening for thyroid disorder Z13.29 and Screening for lipid disorders Z13.220 [facility] [place] [id number] [place] [address] [id number] Apr, Encounter for removal of skin lesion L98.9 and Genital warts A63.0 [facility] [address] [id number] Apr, High risk sexual behavior Z72.51 ; Genital warts A63.0 ; Screening for STD (sexually transmitted disease) Z11.3 ; Other specified bacterial agents as the cause of diseases classified elsewhere B96.89 and Acute vaginitis N76.0 [facility] [address]005[address]100[place] [address] May, [facility] [id number] [place] [address] May, [facility] [address] [place] [address] Feb, [place] [id number] [place] [address] [phone] Feb, [facility] [id number] [place] [address] Feb, [address] [place] [address] [id number] Dec, [facility] [id number], [place] [id number] Dec, [facility] [address], [place] [address] Dec, [facility] [address]100[place], [place] [address] Dec, [facility] [address] [place] [address] [id number] Dec, [facility] [address]005[address]100[place], [place] [address] Dec, [facility] [id number] [place] [address] Dec, [facility] [address] [place] [address] [id number] Dec, [facility] [address] [place] [address] Dec, [facility] [address] [id number] Dec, [facility] [id number] [place] [address] Dec, [facility] [address], [place] [address] Dec, [facility] [address]100[place], [place] [address] Dec, [facility] [address], [place] [address] Dec, [address] [phone] Dec, IMMUNIZATIONS No Known Immunizations SOCIAL HISTORY Never Assessed REASON FOR VISIT med change PLAN OF CARE VITAL SIGNS MEDICATIONS Medication [...]
--- OUTSIDE RECORDS SUMMARY | 2018-08-09 06:11 | XMS REPORT ---
Author Author ADOLFO BERRIOS Organization [facility] Address [address] [place] [address] Care Team Providers Care Environmental Projects Advisor Name Role Phone ADOLFO BERRIOS Unavailable PROBLEMS Type Condition ICD9-CM Code SQP26-QJ Code Onset Dates Condition Status SNOMED Code Problem Mild single current episode of major depressive disorder F32.0 Active 23318058 Problem Stressful life event affecting family Z63.79 Active 269795143 Problem Anxiety F41.9 Active 39247235 Problem Genital warts A63.0 Active 736727740 ALLERGIES Substance Reaction Event Type Date Status Penicillin V Potassium hives Drug Allergy Sep, Active Betadine anaphylaxis Drug Allergy Sep, Active ENCOUNTERS Encounter Location Date Diagnosis [address] [id number] Apr, BMI 40.0-44.9, adult Z68.41 and Follow-up exam Z09 [address] [id number] Mar, Influenza J11.1 and Influenza-like illness R69 [place] [place] [id number] [place] [address] [id number] Dec, [place] [id number] [place] [address] [id number] Nov, Dysuria R30.0 [place] [id number] [place] [address] [id number] Sep, Mild single current episode of major depressive disorder F32.0 and Anxiety F41.9 [address] [address] [place] [address] [id number] Sep, Anxiety F41.9 [place] [address] [place] [address] [id number] Aug, Mild single current episode of major depressive disorder F32.0 and Anxiety F41.9 [facility] [id number] [place] [address] [id number] Aug, Anxiety F41.9 [facility] [id number] [place] [address] [id number] Jul, Anxiety F41.9 and Stressful life event affecting family Z63.79 [address] [id number] [place] [address] [id number] June, Anxiety F41.9 and Stressful life event affecting family Z63.79 [address] [address] [place] [address] [id number] May, Increased glucose level R73.09 [address] [address] [place] [address] [id number] 14 May, 2016 Anxiety F41.9 ; Stressful life event affecting family Z63.79 ; Screening for thyroid disorder Z13.29 and Screening for lipid disorders Z13.220 [address] [address] [place] [address] [id number] 31 Apr, 2016 Encounter for removal of skin lesion L98.9 and Genital warts A63.0 [place] [address] [place] [address] [id number] Apr, High risk sexual behavior Z72.51 ; Genital warts A63.0 ; Screening for STD sexually transmitted disease Z11.3 ; Other specified bacterial agents as the cause of diseases classified elsewhere B96.89 and Acute vaginitis N76.0 [facility] [id number] [place] [address] May, [facility] [id number] [place] [address] May, [facility] [id number] [place] [address] Feb, [facility] [address] [place] [address] [id number] Feb, [facility] [id number] [place] [address] Feb, [facility] [address] [id number][place] [id number] Dec, [facility] [id number], [place] [id number] Dec, [facility] [address]005[address]100[place], [place] [address] Dec, [facility] [address]005[address]100[place], [place] [address] Dec, [facility] [id number], [place] [id number] Dec, [facility] [address] [place] [address] Dec, [facility] [address]005[address], [place] [address] Dec, [facility] [id number], [place] [phone] Dec, [facility] [address]00565100[place], [place] [address] Dec, [facility] [id number], [place] [id number] Dec, [facility] [address]00565100[place], [place] [address] Dec, [facility] [address]00565100[place], [place] [address] Dec, [facility] [address], [place] [address] Dec, [facility] [address], [place] [address] Dec, [facility] [address]100[place], [place] [id number] Dec, IMMUNIZATIONS No Known Immunizations SOCIAL HISTORY Never Assessed REASON FOR VISIT Anxiety follow up Nolberto ALTAMIRANO PLAN OF CARE Activity Details Follow Up 3 Months Reason:CHM Anxiety VITAL SIGNS Height 68 in 2016-10-05 Weight 261.2 lbs 2016-10-05 Temperature 98.5 degrees Fahrenheit 2016-10-05 Heart Rate 74 bpm 2016-10-05 Respiratory Rate 18 2016-10-05 BMI 39.71 kg/m2 2016-10-05 Blood pressure systolic 118 mmHg 2016-10-05 Blood pressure diastolic 74 mmHg 2016-10-05 MEDICATIONS Medication Instructions Dosage Frequency Start Date [...]
--- OUTSIDE RECORDS SUMMARY | 2018-08-09 06:11 | XMS REPORT ---
Author Author ADOLFO BERRIOS Organization [facility] Address [address] [place] [address] Care Team Providers Care Water Taxi Driver Name Role Phone ADOLFO BERRIOS Unavailable PROBLEMS Type Condition ICD9-CM Code MXV12-KR Code Onset Dates Condition Status SNOMED Code Problem Morbid (severe) obesity due to excess calories E66.01 Active 00983644602540 Problem Body mass index (BMI) of 40.0-44.9 in adult Z68.41 Active 486773817 Problem Anxiety F41.9 Active 98032045 Problem Genital warts A63.0 Active 100631934 Problem Mild single current episode of major depressive disorder F32.0 Active 38388969 Problem Stressful life event affecting family Z63.79 Active 408064742 ALLERGIES No Information ENCOUNTERS Encounter Location Date Diagnosis [id number] [place] [address] [id number] Sep, Gastroenteritis K52.9 [address] [place] [id number] [place] [address] [id number] Aug, Anxiety F41.9 ; Morbid (severe) obesity due to excess calories E66.01 and Body mass index (BMI) of 40.0-44.9 in adult Z68.41 [address] [place] [place] [address] [id number] Jul, Morbid (severe) obesity due to excess calories E66.01 ; Body mass index (BMI) of 40.0-44.9 in adult Z68.41 ; Anxiety F41.9 and BMI 40.0-44.9, adult Z68.41 [address] [place] [address] [id number] June, [place] [id number] [place] [address] [id number] Apr, Influenza-like illness R69 ; BMI 40.0-44.9, adult Z68.41 and Follow-up exam Z09 [facility] [id number] [place] [address] [id number] Mar, Influenza-like illness R69 and BMI 40.0-44.9, adult Z68.41 [facility] [id number] [place] [address] [id number] Dec, [facility] [address] [id number] Nov, Dysuria R30.0 [facility] [id number] [place] [address] [id number] Sep, Mild single current episode of major depressive disorder F32.0 and Anxiety F41.9 [facility] [id number] [place] [address] [id number] Sep, Anxiety F41.9 [facility] [address] [id number] Aug, Mild single current episode of major depressive disorder F32.0 and Anxiety F41.9 [facility] [id number] [place] [address] [id number] Aug, Anxiety F41.9 [facility] [place] [address] [id number] Jul, Anxiety F41.9 and Stressful life event affecting family Z63.79 [facility] [id number] [place] [address] [id number] June, Anxiety F41.9 and Stressful life event affecting family Z63.79 [facility] [id number] [place] [address] [id number] May, Increased glucose level R73.09 [facility] [place] [address] [id number] May, Anxiety F41.9 ; Stressful life event affecting family Z63.79 ; Screening for thyroid disorder Z13.29 and Screening for lipid disorders Z13.220 [facility] [id number] [place] [address] [id number] Apr, Encounter for removal of skin lesion L98.9 and Genital warts A63.0 [facility] [id number] [place] [id number] Apr, High risk sexual behavior Z72.51 ; Genital warts A63.0 ; Screening for STD sexually transmitted disease Z11.3 ; Other specified bacterial agents as the cause of diseases classified elsewhere B96.89 and Acute vaginitis N76.0 [facility] [address] [place] [address] May, [facility] [address] [place] [address] May, [facility] [id number] [place] [address] Feb, [facility] [id number] [place] [address] [id number] Feb, [facility] [id number] [place] [address] Feb, [facility] [id number] [place] [address] [id number] Dec, [facility] [id number] [place] [address] [id number] Dec, [facility] [id number] [place] [address] Dec, [facility] [address]00565100[place] [address] Dec, [facility] [id number] [place] [id number] Dec, [facility] [address]00565100[place] [address] Dec, [facility] [address] [place] [address] 18 Dec, 2012 [facility] [id number] [place] [id number] 15 Dec, 2012 [facility] [id number] [place] [address] Dec, [facility] [address] [facility] [id number] [place] [phone] Dec, [facility] [address] [facility] [id number] [address] Dec, [facility] [address] [facility] [id number] [address] Dec, [facility] [address] [facility] [id number] [address] Dec, [facility] [address] [facility] [id number] [place] [address] Dec, [facility] 120 [facility] [id number] [place] [phone] Dec, IMMUNIZATIONS No Known Immunizations SOCIAL HISTORY Never Assessed REASON FOR VISIT Medication PLAN OF CARE VITAL SIGNS MEDICATIONS Medication [...]
--- OUTSIDE RECORDS SUMMARY | 2018-08-09 06:12 | XMS REPORT ---
Author Author CLIFFORDHUMBLET Organization [facility] Address [address] [place] [address] Care Team Providers Care Food Taster Name Role Phone TACOS HORTON Unavailable PROBLEMS Type Condition ICD9-CM Code XRL20-FI Code Onset Dates Condition Status SNOMED Code Problem Mild single current episode of major depressive disorder F32.0 Active 90367415 Problem Stressful life event affecting family Z63.79 Active 875911335 Problem Anxiety F41.9 Active 04952100 Problem Genital warts A63.0 Active 731960961 ALLERGIES No Information ENCOUNTERS Encounter Location Date Diagnosis [address] [id number] Apr, BMI 40.0-44.9, adult Z68.41 and Follow-up exam Z09 [address] [id number] Mar, Influenza-like illness R69 and BMI 40.0-44.9, adult Z68.41 [place] [id number] [place] [id number] Dec, [place] [id number] [place] [id number] Nov, Dysuria R30.[address] [place] [id number] [place] [id number] Sep, Mild single current episode of major depressive disorder F32.0 and Anxiety F41.[address] [place] [id number] [place] [id number] Sep, Anxiety F41.[address] [place] [id number] [place] [id number] Aug, Mild single current episode of major depressive disorder F32.0 and Anxiety F41.[address] [id number] Aug, Anxiety F41.9 [facility] [place] [id number] [place] [id number] Jul, Anxiety F41.9 and Stressful life event affecting family Z63.79 [facility] [place] [address] [id number] [id number] June, Anxiety F41.9 and Stressful life event affecting family Z63.79 [facility] [id number] [place] [id number] May, Increased glucose level R73.09 [facility] [id number] [place] [id number] May, Anxiety F41.9 ; Stressful life event affecting family Z63.79 ; Screening for thyroid disorder Z13.29 and Screening for lipid disorders Z13.220 [facility] [id number] [place] [id number] Apr, Encounter for removal of skin lesion L98.9 and Genital warts A63.0 [facility] [id number] [place] [id number] Apr, High risk sexual behavior Z72.51 ; Genital warts A63.0 ; Screening for STD sexually transmitted disease Z11.3 ; Other specified bacterial agents as the cause of diseases classified elsewhere B96.89 and Acute vaginitis N76.0 [facility] [address] [address] May, [facility] [id number] [place] [phone] May, [facility] [id number] [place] [phone] Feb, [facility] [id number] [place] [phone] Feb, [facility] [id number] [place] [phone] Feb, [facility] [id number] [place] [id number] Dec, [facility] [address] [id number] [place] [phone] Dec, [facility] [address] [address] Dec, [facility] [address] [address] Dec, [facility] [id number] [place] [id number] Dec, [facility] [address] [address] Dec, [facility] [address] [address] Dec, [facility] [id number] [id number] Dec, [facility] [address] [address] Dec, [facility] [id number] [place] [phone] Dec, [facility] [address] [address] Dec, [facility] [address] [address] Dec, [facility] [address] [address] Dec, [facility] [address] [address] Dec, [facility] [id number] [id number] Dec, IMMUNIZATIONS No Known Immunizations SOCIAL HISTORY Never Assessed REASON FOR VISIT Phone call PLAN OF CARE VITAL SIGNS MEDICATIONS No Known Medications RESULTS No Results PROCEDURES No Known procedures INSTRUCTIONS MEDICATIONS ADMINISTERED No Known Medications MEDICAL (GENERAL) HISTORY Type Description Date Medical History depression Surgical History tonsillectomy and adenoidectomy Surgical History cholecystectomy Surgical History appendectomy Surgical History tubal ligation
--- OUTSIDE RECORDS SUMMARY | 2018-08-09 06:12 | XMS REPORT ---
Author Author ADOLFO BERRIOS [facility] Address [address] [place] [address] Care Team Providers Care Chief Embalmer Name Role Phone ADOLFO BERRIOS Unavailable PROBLEMS Type Condition ICD9-CM Code UCU41-AM Code Onset Dates Condition Status SNOMED Code Problem Mild single current episode of major depressive disorder F32.0 Active 55635556 Problem Stressful life event affecting family Z63.79 Active 069916277 Problem Anxiety F41.9 Active 70785316 Problem Genital warts A63.0 Active 482871714 ALLERGIES Substance Reaction Event Type Date Status Penicillin V Potassium hives Drug Allergy June, Active Betadine anaphylaxis Drug Allergy June, Active SOCIAL HISTORY Never Assessed PLAN OF CARE Activity Details Follow Up 4 Weeks Reason:CHM anxiety VITAL SIGNS Height 68 in 2016-06-22 Weight 256.2 lbs 2016-06-22 Temperature 97.8 degrees Fahrenheit 2016-06-22 Heart Rate 64 bpm 2016-06-22 Respiratory Rate 18 2016-06-22 BMI 38.95 kg/m2 2016-06-22 Blood pressure systolic 132 mmHg 2016-06-22 Blood pressure diastolic 78 mmHg 2016-06-22 MEDICATIONS Medication Instructions Dosage Frequency Start Date End Date Duration Status Fluoxetine HCl 20 mg Orally Once a day 1 capsule in the morning 24h 0 days Active Alprazolam 0.5 MG Orally Twice a dayas needed for anxiety 1/2 tablet 0 days Active RESULTS No Results PROCEDURES No Known procedures IMMUNIZATIONS No Known Immunizations MEDICAL (GENERAL) HISTORY Type Description Date Medical History depression Surgical History tonsillectomy and adenoidectomy Surgical History cholecystectomy Surgical History appendectomy Surgical History tubal ligation
--- OUTSIDE RECORDS SUMMARY | 2018-08-09 06:12 | XMS REPORT | Continuity of Care Document ---
Author Organization Unknown Address Unknown Allergies Active Description Code Type Severity Reaction Onset Reported/Identified Relationship to Patient Clinical Status Yes Betadine Drug Allergy N/A N/A 12/15/2012 Yes Penicillins Drug Allergy N/A N/A 12/15/2012 Yes Penicillins [id number] Drug Allergy Unknown N/A 12/18/2012 Yes povidone-iodine [id number] Drug Allergy Unknown N/A 12/18/2012 Yes Soap [id number] Drug Allergy Unknown N/A 12/18/2012 Medications There is no data. Problems Date Dx Coded Attending Type Code Diagnosis Diagnosed By 12/15/2012 AUDRA MORGAN DO V73.81 HPV SCREENING 12/15/2012 AUDRA MORGAN DO V76.10 BREAST CANCER SCREENING 12/15/2012 AUDRA MORGAN DO K V76.2 CERVICAL CANCER SCREENING (PAP SMEAR) 12/15/2012 AUDRA MORGAN DO K V73.81 HPV SCREENING 12/15/2012 AUDRA MORGAN DO K V76.10 BREAST CANCER SCREENING 12/15/2012 AUDRA MORGAN DO K V76.2 CERVICAL CANCER SCREENING (PAP SMEAR) 12/15/2012 AUDRA MORGAN DO K V73.81 HPV SCREENING 12/15/2012 AUDRA MORGAN DO K V76.10 BREAST CANCER SCREENING 12/15/2012 AUDRA MORGAN DO K V76.2 CERVICAL CANCER SCREENING (PAP SMEAR) 12/15/2012 UNA MORGAN DOA K V73.81 HPV SCREENING 12/15/2012 UNA MORGAN DOA K V76.10 BREAST CANCER SCREENING 12/15/2012 UNA MORGAN DOA K V76.2 CERVICAL CANCER SCREENING (PAP SMEAR) 12/23/2012 AUDRA MORGAN DO K 847.1 SPRAIN THORACIC REGION 12/23/2012 AUDRA MORGAN DO K 847.1 SPRAIN THORACIC REGION 12/23/2012 AUDRA MORGAN DO K 847.1 SPRAIN THORACIC REGION 12/30/2012 AUDRA MORGAN DO V70.5 HEALTH EXAMINATION OF DEFINED SUBPOPULATIONS 12/30/2012 AUDRA MORGAN DO V70.5 HEALTH EXAMINATION OF DEFINED SUBPOPULATIONS 02/24/2013 AUDRA MORGAN DO 278.00 OBESITY UNSPECIFIED 02/24/2013 AUDRA MORGAN DO 616.10 VAGINITIS AND VULVOVAGINITIS UNSPECIFIED 02/24/2013 AUDRA MORGAN DO V65.3 DIETARY SURVEILLANCE AND COUNSELING Procedures Code [place] [address] MAMMOGRAM, SCREENING 12/15/2012 27342 CULTURE UROGENITAL 12/15/2012 20771 PAP SMEAR 12/15/2012 Q0091 PAP SMEAR OBTAIN SMEAR 12/15/2012 Results Test Result Range Complete blood count (CBC) with automated white blood cell (WBC) differential - 08/08/18 21:31 Blood leukocytes automated count (number/volume) 6.8 10*3/uL 4.3-11.0 Blood erythrocytes automated count (number/volume) 4.15 10*6/uL 4.35-5.85 Venous blood hemoglobin measurement (mass/volume) 12.1 g/dL 11.5-16.0 Blood hematocrit (volume fraction) 36 % 35-52 Automated erythrocyte mean corpuscular volume 87 [foz_us] 80-99 Automated erythrocyte mean corpuscular hemoglobin (mass per erythrocyte) 29 pg 25-34 Automated erythrocyte mean corpuscular hemoglobin concentration measurement (mass/volume) 34 g/dL 32-36 Automated erythrocyte distribution width ratio 13.7 % 10.0- 14.5 Automated blood platelet count (count/volume) 253 10*3/uL 130-400 Automated blood platelet mean volume measurement 9.6 [foz_us] 7.4-10.4 Automated blood neutrophils/100 leukocytes 66 % 42-75 Automated blood lymphocytes/100 leukocytes 26 % 12-44 Blood monocytes/100 leukocytes 5 % 0-12 Automated blood eosinophils/100 leukocytes 2 % 0-10 Automated blood basophils/100 leukocytes 0 % 0-10 Blood neutrophils automated count (number/volume) 4.5 10*3 1.8-7.8 Blood lymphocytes automated count (number/volume) 1.8 10*3 1.0-4.0 Blood monocytes automated count (number/volume) 0.4 10*3 0.0- 1.0 Automated eosinophil count 0.1 10*3/uL 0.0-0.3 Automated blood basophil count (count/volume) 0.0 10*3/uL 0.0-0.1 Serum or plasma choriogonadotropin ( test) detection - 08/08/18 21:31 Serum or plasma choriogonadotropin ( test) detection NEGATIVE NEGATIVE PT panel in platelet poor plasma by coagulation assay - 08/08/18 21:31 Prothrombin time (PT) in platelet poor plasma by coagulation assay 13.7 s 12.2-14.7 INR in platelet poor plasma or blood by coagulation assay 1.0 0.8-1.4 Activated partial thromboplastin time (aPTT) in platelet poor plasma bycoagulation assay - 08/08/18 21:31 Activated partial thromboplastin time (aPTT) in platelet poor plasma bycoagulation assay 25 s 24-35 Erythrocyte sedimentation rate by westergren method - 08/08/18 21:31 Erythrocyte sedimentation rate by westergren method 36 mm 0-20 Comprehensive metabolic panel - 08/08/18 21:31 Serum or plasma sodium measurement (moles/volume) 139 mmol/L 135-145 Serum or plasma potassium measurement (moles/volume) 3.7 mmol/L 3.6-5.0 Serum or plasma chloride measurement (moles/volume) 106 mmol/L 98-107 Carbon dioxide 20 mmol/L 21-32 Serum or plasma anion gap determination (moles/volume) 13 mmol/L 5-14 Serum or plasma urea nitrogen measurement (mass/volume) 17 mg/dL 7-18 Serum or plasma creatinine measurement (mass/volume) 0.91 mg/dL 0.60-1.30 Serum or plasma urea nitrogen/creatinine mass ratio 19 NRG Serum or plasma creatinine measurement with calculation of estimated glomerular filtration rate > NRG Serum or plasma glucose measurement (mass/volume) 107 mg/dL 70-105 Serum or plasma calcium measurement (mass/volume) 9.2 mg/dL 8.5-10.1 Serum or plasma total bilirubin measurement (mass/volume) 0.3 mg/dL 0.1-1.0 Serum or plasma alkaline phosphatase measurement (enzymatic activity/volume) 108 U/L 40-136 Serum or plasma aspartate aminotransferase measurement (enzymatic activity/volume) 60 U/L 5-34 Serum or plasma alanine aminotransferase measurement (enzymatic activity/volume) 76 U/L 0-55 Serum or plasma protein measurement (mass/volume) 7.6 g/dL 6.4-8.2 Serum or plasma albumin measurement (mass/volume) 4.2 g/dL 3.2-4.5 CALCIUM CORRECTED 9.0 mg/dL 8.5-10.1 Magnesium - 08/08/18 21:31 Magnesium 2.1 mg/dL 1.8-2.4 Serum or plasma C reactive protein measurement (mass/volume) - 08/08/18 21:31 Serum or plasma C reactive protein measurement (mass/volume) 1.92 mg/dL 0.00-0.50 Serum or plasma lithium measurement (moles/volume) - 08/08/18 21:31 BNP PT < 10.0 <100.0 Encounters ACCT No. Visit Date/Time Discharge Status Pt. Type Provider Facility Loc./Unit Complaint [id number] 02/24/2013 08:18:00 02/24/2013 23:59:59 CLS Outpatient AUDRA MORGAN DO [id number] 12/30/2012 13:47:00 12/30/2012 23:59:59 CLS Outpatient AUDRA MORGAN DO [id number] 12/23/2012 10:50:00 12/23/2012 23:59:59 CLS Outpatient AUDRA MORGAN DO [id number] 12/15/2012 08:24:00 12/15/2012 23:59:59 CLS Outpatient AUDRA MORGAN DO [id number] 12/22/2012 09:05:00 12/22/2012 23:59:59 CLS Outpatient [id number] 12/18/2012 13:57:00 12/18/2012 16:26:00 DIS Emergency [id number] 08/08/2018 21:15:00 ACT Emergency TENNILLE MACHUCA DO [facility] ER [facility]G [place] [id number] 04/12/2017 08:10:03 ACT Unknown [id number] 08/08/2018 18:40:00 ACT [facility] [place]
--- NOTE | 2018-08-09 07:06 | Diagnostic Imaging Report ---
PROCEDURE: US left lower extremity venous. TECHNIQUE: Multiple real-time grayscale images were obtained over the left lower extremity in various projections. Additional duplex Doppler and color Doppler images were also obtained. INDICATION: Left leg swelling. COMPARISON: None FINDINGS: The left common femoral vein, femoral vein, deep femoral vein, and popliteal vein are normal in appearance. These vessels show normal compressibility, color flow and doppler augmentation. The visualized deep calf veins demonstrate no distinct intraluminal thrombus. There are linear hypoechoic structures in the subcutaneous fat of the lower medial thigh and lower medial calf, which may represent thrombosed superficial vein. This is noncompressible. IMPRESSION: 1. No sonographic evidence of deep venous thrombosis in the left lower extremity. 2. Findings concerning for superficial venous thrombus in the medial left thigh and medial left calf. Dictated by: Dictated on workstation # [id number]
== END 2018-08-08 22:36 | disposition home or self-care (01) ==
LOC: EDUNIT# 21:14 → ER 21:15
DX: I80.02 Phlebitis and thrombophlebitis of superficial vessels of left lower extremity (principal); R94.5 Abnormal results of liver function studies; Z88.0 Allergy status to penicillin; Z91.041 Radiographic dye allergy status
CPT/HCPCS: 36415; 80053; 83735; 83880; 84703; 85025; 85610; 85652; 85730; 86141

== ENCOUNTER → 2019-07-28 | Outpatient (CLI) | payer OTHER ==
[~2019-07-28] MED LIST changes: +RIVA1TAB PO
--- NOTE | 2019-07-28 12:49 | Diagnostic Imaging Report ---
Indication: Routine screening. Comparison is made with prior mammogram 12/22/2012. 2-D and 3-D bilateral screening mammography was performed with CAD. Scattered fibroglandular densities are identified bilaterally. The parenchymal pattern is stable. No dominant mass or malignant-appearing microcalcifications are identified. Occasional benign calcifications are noted. Axillae are unremarkable. IMPRESSION: BI-RADS Category 2 No mammographic features suspicious for malignancy are identified. ACR BI-RADS Category 2: Benign findings. Result letter will be mailed to the patient. Note: At least 10% of breast cancer is not imaged by mammography. Dictated by: Dictated on workstation # [id number]
== END ==
LOC: RAD 10:45
PROVIDERS: ATTEND Nurse Practitioner Family
DX: Z12.31 Encounter for screening mammogram for malignant neoplasm of breast (principal); Z01.419 Encounter for gynecological examination (general) (routine) without abnormal findings
CPT/HCPCS: 77063; 77067